=== PATIENT | male | born 1985 | race Caucasian/White ===

== ENCOUNTER 2025-01-01 21:22 | Emergency (ER) | payer OTHER, SELFPAY ==
[2025-01-01 21:23] VITALS: BP 130/93; PULSE 84; RESP 18; TEMP 36.8; O2SAT 98; BMI 27.6
--- NOTE | 2025-01-01 22:16 | EDS_ITS ---
HPI History of Present Illness Chief Complaint: Bite Informant: patient Narrative Narrative: 39-year-old healthy male was sent here from outside hospital to get rabies vaccine. He states he was in the field with his son's light not firecrackers, it was after dusk 2 nights ago and there were bats flying around chasing insects, and he suddenly felt something soft like a furry rodent bounced off of his right wrist. He did not think anything of it, there was no pain, he noticed that there was a small mildly pruritic rash at that area yesterday, today he went to the ER after making several phone calls and being advised to seek evaluation. He states he did not see for sure a bat but he states it felt like one. ROS ROS ED Constitutional Constitutional ED: Denies chills or fever(s) Eyes Eyes: Denies change in vision or diplopia ENT ENT ED: Denies rhinorrhea or sore throat Cardiovascular Cardiovascular: Denies chest pain or palpitations Respiratory/Chest Respiratory/Chest: Denies cough or dyspnea Gastrointestinal Gastrointestinal: Denies abdominal pain, diarrhea, nausea or vomiting Genitourinary Genitourinary ED: Denies dysuria or hematuria Musculoskeletal Musculoskeletal: Denies back pain, extremity pain or neck pain Integumentary Reports pruritus and rash; Denies abscess Neurologic Neurologic: Denies headache(s), paresthesias or weakness Psychiatric Psychiatric: Denies anxiety or suicidal thoughts PFSH PFSH Allergy/AdvReac Type Severity Reaction Status Date / Time amoxicillin AdvReac Rash Verified 01/01/25 21:23 EXAM Physical Exam Const Vital Signs: 01/01/25 21:23 Temperature 98.2 F Temperature Source Oral Pulse Rate 84 Respiratory Rate 18 Blood Pressure 130/93 H Blood Pressure Mean 105 Pulse Ox 98 Oxygen Delivery Method Room Air Positive well nourished and well developed General Appearance ED: well developed and NAD Eyes PERRL and EOMs intact bilaterally Neck full ROM and supple Resp normal respiratory effort Extremity normal to inspection General Extremety ED: Negative for edema, pulses abnormal or tenderness General Extremity: Negative for edema or pulses abnormal Neuro oriented x3, CN's II-XII intact bilaterally and no sensory deficits noted Sensorium / Orientation: awake and alert Motor Exam: strength 5/5 throughout Psych mental status grossly normal and thought process normal Skin Skin Narrative: A very small 1 cm in diameter patch of erythematous skin at the volar aspect of the right wrist near the ulnar aspect of it, most consistent with an abrasion v ersus small area of contact dermatitis, I do not see an area with 2 bite morales that would be suspicious for a bat bite. There is no tenderness. There is no lymphangitis. There is no swelling or bullae or vesicular lesions. No other rashes. Full range of motion of the wrist and all the fingers. MDM MDM MDM Narrative Medical decision making narrative: I am at a very low suspicion that this is a bite from a bat. He states what ever it was that hit his wrist bounced off of. He is interested in rabies vaccine anyway, I have given him the initial dose here and he is advised to come back for the next 3 and written a prescription. This is so low risk in my opinion I do not think he needs rabies immunoglobulin injection right now. He is in agreement with that. Discharge Plan Triage Chief Complaint: Bite ED Provider: Boston Cantor Dx/Rx/DC Orders Clinical Impression: Exposure to bat without known bite Instructions: Rabies Vaccine, Understanding Rabies Primary Care Provider: Moses Rai Referrals: Moses Rai MD [Primary Care Provider] - Activity Restrictions/Additional Instructions: Return to the ER at the specified days for the rest of the 4 injection series. Print Language: [place] Disposition Disposition: Home, Self Care
[2025-01-01 22:51] VITALS: BP 129/97; PULSE 84; RESP 18; TEMP 36.8; O2SAT 98
== END 2025-01-01 23:08 | disposition home or self-care (01) ==
PROVIDERS: Emergency Provider Emergency Medicine; PCP Family Medicine; Visit Provider Emergency Medicine
DX: S69.92XA Unspecified injury of left wrist, hand and finger(s), initial encounter (principal); W55.89XA Other contact with other mammals, initial encounter; Z23 Encounter for immunization
CPT/HCPCS: 90675; 99282

== ENCOUNTER 2025-01-04 18:28 | Outpatient (CLI) | payer OTHER, SELFPAY ==
[2025-01-04 18:29] VITALS: BP 127/87; PULSE 83; RESP 15; TEMP 36.6; O2SAT 99; BMI 27.2
[2025-01-04 18:33] VITALS: BMI 27.2
[2025-01-04 18:56] VITALS: BP 127/87; PULSE 83; RESP 15; TEMP 36.6; O2SAT 99
--- OUTSIDE RECORDS SUMMARY | 2025-01-04 20:25 | XMS RPT_ITS | CCD ---
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 report to the closest Emergency Room. Call 911 if necessary. 01/01/252225 Cosigner Signature (if applicable): CC: Dr. Moses Duran MD Signed Normal [facility] CMP with eGFRon 11-06-2024 AGE 39 years Normal [facility] Comment on above: Performed By: #### 2 [id number] #### [facility],[address] [place] [address]644 Albumin [Mass/Vol] 4.4 g/dL Normal 3.4 - 5.0 [facility], [facility].; [facility], [facility]. Work Phone: Comment on above: Performed By: #### 2 [id number] #### [facility],[address] [place] [address] Albumin/Globulin [Mass ratio] 1.5 {ratio} Normal 0.9 - 1.6 [facility] Comment on above: Performed By: #### 2 [id number] #### [address] [address] ALK PHOS 74 U/L Normal 46 - 116 [facility].; [facility] Work Phone: Comment on above: Performed By: #### 2 40526 #### [address] [address] ALT [Catalytic activity/Vol] 73 U/L High 16 - 63 [facility], [facility].; [facility] Work Phone: Comment on above: Performed By: #### 2 60279 #### [address] [address] Anion gap [Moles/Vol] 11 mmol/L Normal 10 - 20 [facility], [facility].; [facility] Work Phone: Comment on above: Performed By: #### 2 87026 #### [address] [address] AST [Catalytic activity/Vol] 26 U/L Normal 15 - 37 [facility], [facility].; [facility] Work Phone: Comment on above: Performed By: #### 2 26977 #### [facility],[address] [place] [address] B/C RATIO 12 ratio Normal 0 - 30 [facility] Comment on above: Performed By: #### 2 57104 #### [facility],[address] [place] [address]181 Bilirubin [Mass/Vol] 0.8 mg/dL Normal 0.2 - 1.0 [facility]; [facility], [facility] Work Phone: Comment on above: Performed By: #### 2 52936 #### [facility],[address] [place] [address]329 Calcium [Mass/Vol] 8.9 mg/dL Normal 8.5 - 10.1 [facility].; [facility], [facility] Work Phone: Comment on above: Performed By: #### 2 74647 #### [facility],[address] [place] [address] Chloride [Moles/Vol] 101 mmol/L Normal 98 - 107 [facility]; [facility], [facility]. Work Phone: Comment on above: Performed By: #### 2 65658 #### [facility],[address] [place] [address]753 CMP with eGFR Normal [facility] Comment on above: Result Comment: COMP REHENSIVE METABOLIC PANEL Performed By: #### 2 74829 #### [facility],[address] [place] [address] CO2 [Moles/Vol] 29.9 mmol/L Normal 21.0 - 32.0 [facility], [facility].; [facility], [facility]. Work Phone: Comment on above: Performed By: #### 2 61991 #### [facility],[address] [place] [address] Creatinine [Mass/Vol] 1.07 mg/dL Normal 0.70 - 1.30 [facility] Work Phone: Comment on above: Performed By: #### 2 40510 #### [facility],[address] [place] [address] GFR/1.73 sq M.predicted among non-blacks MDRD (S/P/Bld) [Vol rate/Area] mL/min/{1.73_m2} Normal 60 - 999 [facility] Comment on above: Performed By: #### 2 98364 #### [address] [address] Result Comment: ACCO RDING TO THE NATIONAL KIDNEY DISEASE EDUCATION PROGRAM(NKDE), A NORMAL eGFR IS A VALUE GREATER THAN OR EQUAL TO 60 ML/MIN/1.73 SQ METERS. CHRONIC KIDNEY DISEASE: <60mL/MIN/1.73 SQ METERS KIDNEY FAILURE: <15mL/MIN/1.73 SQ METERS THIS TEST SHOULD ONLY BE USED FOR PATIENTS 18 YEARS OF AGE AND OLDER. Globulin (S) [Mass/Vol] 3.0 g/dL Normal 1.5 - 3.8 [facility] Work Phone: Comment on above: Performed By: #### 2 94866 #### [facility],[address] [place] [address] Glucose [Mass/Vol] 86 mg/dL Normal 74 - 106 [facility] [employer] [facility] [place], [employer]. Work Phone: Comment on above: Performed By: #### 2 17410 #### [facility],[address] [place] [address] Potassium [Moles/Vol] 3.9 mmol/L Normal 3.5 - 5.1 [facility].; [facility]. Work Phone: Comment on above: Performed By: #### 2 04064 #### [facility],[address] [place] [address] Protein [Mass/Vol] 7.4 g/dL Normal 6.4 - 8.2 [facility] Work Phone: Comment on above: Performed By: #### 2 64311 #### [facility],[address] [place] [address]65 Sodium [Moles/Vol] 138 mmol/L Normal 136 - 145 [facility] Work Phone: Comment on above: Performed By: #### 2 60862 #### [address] [address] Urea nitrogen [Mass/Vol] 13 mg/dL Normal 7 - 18 [facility] [place] [facility] [place] [employer] [facility], [place], [employer] Work Phone: Comment on above: Performed By: #### 2 62611 #### [facility],[address] [place] [address] LIPID PROFILEon 11-06-2024 Cholesterol [Mass/Vol] 247 mg/dL High 0 - 240 [facility] [place] [facility] Work Phone: Comment on above: Performed By: #### 2 78745 #### [facility],[address] [place] [address]861 Cholesterol in HDL [Mass/Vol] 46 mg/dL Normal 40 - 60 [facility] Comment on above: Performed By: #### 2 39775 #### [facility],[address] [place] [address] Cholesterol in LDL [Mass/Vol] 172 mg/dL High 0 - 129 [facility] Work Phone: Comment on above: Performed By: #### 2 48218 #### [facility],[address] [place] [address] Cholesterol.total/Ch olesterol in HDL [Mass ratio] 5.4 {ratio} High 0.0 - 5.0 [facility], [facility].; [facility], [employer]. Work Phone: Comment on above: Performed By: #### 2 08881 #### [facility],[address] [place] [address] 17404 Lipid 1996 panel Normal [facility] Comment on above: Result Comment: LIPI D PROFILE Performed By: #### 2 88283 #### [facility],[address] [place] [address] Triglyceride [Mass/Vol] 147 mg/dL Normal 0 - 150 [facility].; [facility] Work Phone: Comment on above: Performed By: #### 2 45858 #### [facility],[address] [place], [place] [address] Laboratory - Chemistry and C hemistry - challengeon 11-06-2024 Albumin [Mass/Vol] 1.5 g/dL Normal 0.9 - 1.6 [facility].; [facility], [facility]. Work Phone: Cholesterol in HDL [Mass or moles/Vol] 46 mg/dL Normal 40 - 60 mg/dL [facility].; [facility] Work Phone: GFR/1.73 sq M.predicted among blacks MDRD (S/P/Bld) [Vol rate/Area] mL/min/{1.73_m2} Normal 60 - 999 {ML/MINUTE} [facility], [facility].; [facility] Work Phone: GFR/1.73 sq M.predicted MDRD (S/P/Bld) [Vol rate/Area] mL/min/{1.73_m2} Normal 60 - 999 {ML/MINUTE} [facility] [employer] [facility], [place] [employer] [facility] [place] [employer] [facility], [place]. Work Phone: Lipid 1996 panel Normal [facility] [employer] [facility] [place] [employer] [facility], [place]. Work Phone: Urea nitrogen/Creatinine [Mass ratio] 12 {ratio} Normal 0 - 30 {ratio} [facility] [employer] [facility], [place].; [employer] [facility] [place] [employer] [facility], [place]. Work Phone: No Panel Informationon 11-06 AGE 39 {years} Normal [facility] [employer] [facility], [place].; [employer] [facility] [place] [employer] [facility], [place]. Work Phone: CMP with eGFR Normal [facility] [employer] [facility], [place]; [employer] [facility] [place] [employer] [facility], [place]. Work Phone: .GFRon 11-24-2022 GFR >60 Normal [facility] ([place]) Comment on above: Result Comment: GFR Population mean for , Non- Americans Ages 20-29 = 116 mL/min/1.73 sq.m. Ages 30-39 = 107 mL/min/1.73 sq.m. Ages 40-49 = 99 mL/min/1.73 sq.m. Ages 50-59 = 93 mL/min/1.73 sq.m. Ages 60-69 = 85 mL/min/1.73 sq.m. Ages 70+ = 75 mL/min/1.73 sq.m. Chronic Kidney Disease: Less than 60 mL/min/1.73 square meters End Stage Renal Disease: Less than 15 mL/min/1.73 square meters Performed By: #### G FR, LIPID, CMP #### [place] [address] GFR Non- >60 Normal [facility] ([place]) Comment on above: Result Comment: GFR Population mean for , Non- Americans Ages 20-29 = 116 mL/min/1.73 sq.m. Ages 30-39 = 107 mL/min/1.73 sq.m. Ages 40-49 = 99 mL/min/1.73 sq.m. Ages 50-59 = 93 mL/min/1.73 sq.m. Ages 60-69 = 85 mL/min/1.73 sq.m. Ages 70+ = 75 mL/min/1.73 sq.m. Chronic Kidney Disease: Less than 60 mL/min/1.73 square meters End Stage Renal Disease: Less than 15 mL/min/1.73 square meters Performed By: #### G FR, LIPID, CMP #### [address] [address] CMPon 11-24-2022 Albumin Level 4.4 G/dL Normal 3.2-4.8 [facility] ([place]) Comment on above: Performed By: #### G FR, LIPID, CMP #### [address] [address] Albumin/Globulin [Mass ratio] 1.8 {ratio} High 0.9-1.6 [facility] ([place]) Comment on above: Performed By: #### G FR, LIPID, CMP #### [address] [address] ALP [Catalytic activity/Vol] 79 U/L Normal 38-126 [facility] ([place]) Comment on above: Performed By: #### G FR, LIPID, CMP #### [address] [address] ALT [Catalytic activity/Vol] 22 U/L Normal 12-55 [facility] ([place]) Comment on above: Performed By: #### G FR, LIPID, CMP #### [address] [address] AST [Catalytic activity/Vol] 19 U/L Normal 8-34 [facility] ([place]) Comment on above: Performed By: #### G FR, LIPID, CMP #### [address] [address] Bili Total 0.40 mg/dL Normal 0.20-1.20 [facility] ([place]) Comment on above: Result Comment: Use of this assay is not recommended for patients undergoing treatment with eltrombopag due to the potential for falsely elevated results. Performed By: #### G FR, LIPID, CMP #### [address] [address] BUN/Creatinine Ratio 13.9 ratio Normal 10.0-22.0 [facility] ([place]) Comment on above: Performed By: #### G FR, LIPID, CMP #### [address] [address] Calcium [Mass/Vol] 9.1 mg/dL Normal 8.7-10.4 Pending sale to [facility] ([place]) Comment on above: Performed By: #### G FR, LIPID, CMP #### [address] [address] Chloride [Moles/Vol] 104 mmol/L Normal 98-110 [facility] ([place] Comment on above: Performed By: #### G FR, LIPID, CMP #### [address] [address] CO2 [Moles/Vol] 28 mmol/L Normal 22-32 [facility] ([place]) Comment on above: Performed By: #### G FR, LIPID, CMP #### [address] [address] Creatinine [Mass/Vol] 1.01 mg/dL Normal 0.60-1.40 [facility] ([place] Comment on above: Performed By: #### G FR, LIPID, CMP #### [address] [address] Electrolyte Balance 7.0 mEq/L Normal 4.0-15.0 [facility] ([place]) Comment on above: Performed By: #### G FR, LIPID, CMP #### [address] [address] Globulin 2.4 G/dL Normal 1.5-3.8 [facility] ([place] Comment on above: Performed By: #### G FR, LIPID, CMP #### [address] [address] Glucose [Mass/Vol] 85 mg/dL Normal 70-110 [facility] ([place]) Comment on above: Performed By: #### G FR, LIPID, CMP #### [address] [address] Potassium [Moles/Vol] 3.9 mmol/L Normal 3.5-5.0 [facility] ([place]) Comment on above: Performed By: #### G FR, LIPID, CMP #### [address] [address] Sodium [Moles/Vol] 139 mmol/L Normal 136-145 [facility] ([place]) Comment on above: Performed By: #### G FR, LIPID, CMP #### [address] [address] Total Protein 6.8 G/dL Normal 5.7-8.2 [facility] ([place]) Comment on above: Result Comment: No te - New Reference Range in effect 19 Performed By: #### G FR, LIPID, CMP #### [address] [address] Urea nitrogen [Mass/Vol] 14.0 mg/dL Normal 8.0-22.0 [facility] ([place]) Comment on above: Performed By: #### G FR, LIPID, CMP #### [address] [address] LIPIDon 11-24-2022 Cholesterol [Mass/Vol] 216 mg/dL High 50-199 [facility] ([place] Comment on above: Result Comment: Chol esterol Reference Interval: Less than 200 Desirable 200-239 Borderline high risk 240 and above High risk Performed By: #### G FR, LIPID, CMP #### [address] [address] Cholesterol in HDL [Mass/Vol] 43 mg/dL Normal 40-59 [facility] ([place] Comment on above: Performed By: #### G FR, LIPID, CMP #### [address] [address] Cholesterol in LDL [Mass/Vol] 118 mg/dL Normal 0-129 [facility] ([place] Comment on above: Performed By: #### G FR, LIPID, CMP #### [place] [id number] [place] [address] Triglyceride [Mass/Vol] 276 mg/dL High 3-149 [facility] ([place] Comment on above: Performed By: #### G FR, LIPID, CMP #### [place] [id number] [place] [address] Laboratory - Chemistry and C hemistry - challengeon 11-24-2022 GFR/1.73 sq M.predicted among blacks MDRD (S/P/Bld) [Vol rate/Area] mL/min/{1.73_m2} Normal [facility] Work Phone: GFR/1.73 sq M.predicted among non-blacks MDRD (S/P/Bld) [Vol rate/Area] mL/min/{1.73_m2} Normal [facility] Work Phone: Laboratory - Chemistry and C hemistry - challengeon 11-23-2022 Albumin BCP dye [Mass/Vol] 4.4 g/dL Normal 3.2 - 4.8 g/dL [facility], [facility].; [facility] Albumin/Globulin [Mass ratio] 1.8 {ratio} Abnormal 0.9 - 1.6 {ratio} [facility], [facility].; [facility] ALP [Catalytic activity/Vol] 79 U/L Normal 38 - 126 U/L [facility], [facility].; [facility] ALT With P-5'-P [Catalytic activity/Vol] 22 U/L Normal 12 - 55 U/L [facility], [facility].; [facility] AST With P-5'-P [Catalytic activity/Vol] 19 U/L Normal 8 - 34 U/L [facility], [facility].; [facility] Bilirubin [Mass/Vol] 0.40 mg/dL Normal 0.20 - 1.20 mg/dL [facility], [facility]; [facility] Calcium [Mass/Vol] 9.1 mg/dL Normal 8.7 - 10. 4 mg/dL [facility]; [facility] Chloride [Moles/Vol] 104 mmol/L Normal 98 - 110 meq/L [facility]; [facility] Cholesterol [Mass/Vol] 216 mg/dL Abnormal 50 - 199 mg/dL [facility].; [facility] Cholesterol in HDL [Mass/Vol] 43 mg/dL Normal 40 - 59 mg/dL [facility]; [facility] Cholesterol in LDL [Mass/Vol] 118 mg/dL Normal 0 - 129 mg/dL [facility]; [facility], [facility] CO2 [Moles/Vol] 28 mmol/L Normal 22 - 32 meq/L [facility]; [facility], [facility] Creatinine [Mass/Vol] 1.01 mg/dL Normal 0.60 - 1.40 mg/dL [facility]; [facility], [facility] Globulin (S) [Mass/Vol] 2.4 g/dL Normal 1.5 - 3.8 g/dL [facility]; [facility], [facility] Glucose [Mass/Vol] 85 mg/dL Normal 70 - 110 mg/dL [facility]; [facility] Potassium [Moles/Vol] 3.9 mmol/L Normal 3.5 - 5.0 meq/L [facility]; [facility], [facility] Protein [Mass/Vol] 6.8 g/dL Normal 5.7 - 8.2 g/dL [facility]; [facility], [facility] Sodium [Moles/Vol] 139 mmol/L Normal 136 - 145 meq/L [facility].; [facility], [facility] Triglyceride [Mass/Vol] 276 mg/dL Abnormal 3 - 149 mg/dL [facility]; [facility] Urea nitrogen [Mass/Vol] 14.0 mg/dL Normal 8.0 - 22.0 mg/dL [facility]; [facility], [facility] Urea nitrogen/Creatinine [Mass ratio] 13.9 {ratio} Normal 10.0 - 22.0 {ratio} [facility].; [facility], [facility] No Panel Informationon 11-23 Electrolyte Balance 7.0 meq/L Normal 4.0 - 15 .0 meq/L [facility]; [facility], [facility] Laboratory - Chemistry and C hemistry - challengeon 10-16-2021 Albumin BCP dye [Mass/Vol] 4.2 g/dL Normal 3.2 - 4.8 g/dL [facility]; [facility], [facility] Albumin/Globulin [Mass ratio] 1.6 {ratio} Normal 0.9 - 1.6 {ratio} [facility]; [facility], [facility]. ALP [Catalytic activity/Vol] 88 U/L Normal 38 - 126 U/L [facility]; [facility], [facility]. ALT With P-5'-P [Catalytic activity/Vol] 39 U/L Normal 12 - 55 U/L [facility]; [facility], [facility]. AST With P-5'-P [Catalytic activity/Vol] 24 U/L Normal 8 - 34 U/L [facility].; [facility], [facility]. Bilirubin [Mass/Vol] 0.40 mg/dL Normal 0.20 - 1.20 mg/dL [facility]; [facility], [facility] Calcium [Mass/Vol] 9.1 mg/dL Normal 8.7 - 10. 4 mg/dL [facility]; [facility], [facility] Chloride [Moles/Vol] 107 mmol/L Normal 98 - 110 meq/L [facility]; [facility] Cholesterol [Mass/Vol] 216 mg/dL Abnormal 50 - 199 mg/dL [facility].; [facility] Cholesterol in HDL [Mass/Vol] 31 mg/dL Abnormal 40 - 59 mg/dL [facility].; [facility], [facility] CO2 [Moles/Vol] 27 mmol/L Normal 22 - 32 meq/L [facility].; [facility], [facility] Creatinine [Mass/Vol] 1.15 mg/dL Normal 0.60 - 1.40 mg/dL [facility].; [facility], [facility]. GFR/1.73 sq M.predicted among blacks MDRD (S/P/Bld) [Vol rate/Area] mL/min/{1.73_m2} Normal [facility].; [facility], [facility] Work Phone: GFR/1.73 sq M.predicted among non-blacks MDRD (S/P/Bld) [Vol rate/Area] mL/min/{1.73_m2} Normal [facility].; [facility], [facility] Work Phone: Globulin (S) [Mass/Vol] 2.6 g/dL Normal 1.5 - 3.8 g/dL [facility].; [facility], [facility] Glucose [Mass/Vol] 91 mg/dL Normal 70 - 110 mg/dL [facility]; [facility], [facility] Potassium [Moles/Vol] 4.2 mmol/L Normal 3.5 - 5.0 meq/L [facility]; [facility], [facility] Protein [Mass/Vol] 6.8 g/dL Normal 5.7 - 8.2 g/dL [facility]; [facility], [facility] Sodium [Moles/Vol] 140 mmol/L Normal 136 - 145 meq/L [facility]; [facility]. Triglyceride [Mass/Vol] 414 mg/dL Abnormal 3 - 149 mg/dL [facility].; [facility], [facility]. Urea nitrogen [Mass/Vol] 17.0 mg/dL Normal 8.0 - 22.0 mg/dL [facility], [facility].; [facility], [facility] Urea nitrogen/Creatinine [Mass ratio] 14.8 {ratio} Normal 10.0 - 22.0 {ratio} [facility], [facility].; [facility], [facility]. No Panel Informationon 10-16 Electrolyte Balance 6.0 meq/L Normal 4.0 - 15 .0 meq/L [facility].; [facility], [facility] LDL Cholesterol Not Valid Normal 0 - 129 mg/dL [facility], [facility].; [facility], [facility]. Coronavirus 2019on 0 COVID 19 Result [employer]OR Normal Negative for COVID19 (SARS CoV2) by PCR. [facility] Comment on above: Result Comment: Nega tive for This test was developed and its performance characteristics determined by [facility]'s [facility] [place]. This test has been authorized by FDA under an Emergency Use Authorization (EUA). This test has been validated in accordance with the FDA's Guidance Document Policy for Diagnostics Testing in Laboratories Certified to Perform High Complexity Testing under CLIA prior to Emergency use Authorization for Coronavirus Disease 2019 during the Public Health Emergency issued on July 08, 2019. COVID19 (SARS This test was developed and its performance characteristics determined by [facility]'s [facility] [place]. This test has been authorized by FDA under an Emergency Use Authorization (EUA). This test has been validated in accordance with the FDA's Guidance Document Policy for Diagnostics Testing in Laboratories Certified to Perform High Complexity Testing under CLIA prior to Emergency use Authorization for Coronavirus Disease 2019 during the Public Health Emergency issued on July 08, 2019. CoV2) by PCR. This test was developed and its performance characteristics determined by [facility]'s [facility] [place]. This test has been authorized by FDA under an Emergency Use Authorization (EUA). This test has been validated in accordance with the FDA's Guidance Document Policy for Diagnostics Testing in Laboratories Certified to Perform High Complexity Testing under CLIA prior to Emergency use Authorization for Coronavirus Disease 2019 during the Public Health Emergency issued on July 08, 2019. Performed By: #### C OVID #### [facility] Laboratories Reference [address] [place], [place] [address] Coronavirus 2019on 0 COVID 19 Source [employer] Normal [place] [facility] Comment on above: Result Comment: Naso pharyngeal Corrected on 03/31 AT 0831: Previously reported as NASAL SWAB Swab Corrected on 03/31 AT 0831: Previously reported as NASAL SWAB Performed By: #### C OVID #### [facility] Reference [address], [place] [address] Laboratory - Chemistry and C hemistry - challengeon 12-29-2019 Albumin BCP dye [Mass/Vol] 4.5 g/dL Normal 3.2 - 4.8 g/dL [facility].; [facility], [facility]. Albumin/Globulin [Mass ratio] 2.0 {ratio} Abnormal 0.9 - 1.6 {ratio} [facility].; [facility], [facility]. ALP [Catalytic activity/Vol] 84 U/L Normal 38 - 126 U/L [facility].; [facility], [facility]. ALT With P-5'-P [Catalytic activity/Vol] 46 U/L Normal 12 - 55 U/L [facility].; [facility], [facility]. AST With P-5'-P [Catalytic activity/Vol] 25 U/L Normal 8 - 34 U/L [facility].; [facility], [facility]. Bilirubin [Mass/Vol] 0.50 mg/dL Normal 0.20 - 1.20 mg/dL [facility], [facility].; [facility], [facility]. Calcium [Mass/Vol] 9.6 mg/dL Normal 8.7 - 10. 4 mg/dL [facility], [facility].; [facility]. Chloride [Moles/Vol] 103 mmol/L Normal 98 - 110 meq/L [facility].; [facility] Cholesterol [Mass/Vol] 231 mg/dL Abnormal 50 - 199 mg/dL [facility].; [facility], [facility] Cholesterol in HDL [Mass/Vol] 41 mg/dL Normal 40 - 59 mg/dL [facility].; [facility], [facility] Cholesterol in LDL [Mass/Vol] 115 mg/dL Normal 0 - 129 mg/dL [facility].; [facility], [facility] CO2 [Moles/Vol] 29 mmol/L Normal 22 - 32 meq/L [facility].; [facility], [facility] Creatinine [Mass/Vol] 0.82 mg/dL Normal 0.60 - 1.40 mg/dL [facility].; [facility], [facility] GFR/1.73 sq M.predicted among blacks MDRD (S/P/Bld) [Vol rate/Area] mL/min/{1.73_m2} [facility].; [facility], [facility] Work Phone: GFR/1.73 sq M.predicted among non-blacks MDRD (S/P/Bld) [Vol rate/Area] mL/min/{1.73_m2} Normal [facility].; [facility], [facility] Work Phone: Globulin (S) [Mass/Vol] 2.2 g/dL Normal 1.5 - 3.8 g/dL [facility].; [facility], [facility] Glucose [Mass/Vol] 98 mg/dL Normal 70 - 110 mg/dL [facility].; [facility], [facility] Potassium [Moles/Vol] 3.9 mmol/L Normal 3.5 - 5.0 meq/L [facility].; [facility], [facility] Protein [Mass/Vol] 6.7 g/dL Normal 5.7 - 8.2 g/dL [facility]; [facility] Sodium [Moles/Vol] 138 mmol/L Normal 136 - 145 meq/L [facility]; [facility] Triglyceride [Mass/Vol] 374 mg/dL Abnormal 3 - 149 mg/dL [facility]; [facility] Urea nitrogen [Mass/Vol] 15.0 mg/dL Normal 8.0 - 22.0 mg/dL [facility]; [facility] Urea nitrogen/Creatinine [Mass ratio] 18.3 {ratio} Normal 10.0 - 22.0 {ratio} [facility]; [facility] No Panel Informationon 12-28 Electrolyte Balance 6.0 meq/L Normal 4.0 - 15 .0 meq/L [facility]; [facility] Vital Signs Date Time Vital Sign Value Performing Clinician Facility 01-04-2025 18:56-0400 Body temperature 98 [degF] Dr. Moses Duran MD Work Phone: [facility] 01-04-2025 18:56-0400 Diastolic blood pressure 87 mm[Hg] Dr. Moses Duran MD Work Phone: [facility] 01-04-2025 18:56-0400 Heart rate 83 /min Dr. Moses Duran MD Work Phone: [facility] 01-04-2025 18:56-0400 Respiratory rate 15 /min Dr. Moses Duran MD Work Phone: [facility] 01-04-2025 18:56-0400 SaO2% (BldA) [Mass fraction] 99 % Dr. Moses Duran MD Work Phone: [facility] 01-04-2025 18:56-0400 Systolic blood pressure 127 mm[Hg] Dr. Moses Duran MD Work Phone: [facility] 01-04-2025 18:33-0400 Body height 187.[address] Moses Duran MD Work Phone: [facility] 01-04-2025 18:33-0400 Body mass index (BMI) [Ratio] 27.2 kg/m2 Dr. Moses Duran MD Work Phone: [facility] 01-04-2025 18:33-0400 Body weight 96.[address] Moses Duran MD Work Phone: 2(879)913-709599 [place] [address] 01-01-2025 22:51-0400 Body temperature 98.2 [degF] Dr. Moses Duran MD Work Phone: 1(909)011-426599 [place] [address] 01-01-2025 22:51-0400 Diastolic blood pressure 97 mm[Hg] Dr. Moses Duran MD Work Phone: 9(836)[phone] [place] [address] 01-01-2025 22:51-0400 Heart rate 84 /min Dr. Moses Duran MD Work Phone: 8(912)208-981099 [place] [address] 01-01-2025 22:51-0400 Respiratory rate 18 /min Dr. Moses Duran MD Work Phone: 0(859)[phone] [place] [address] 01-01-2025 22:51-0400 SaO2% (BldA) [Mass fraction] 98 % Dr. Moses Duran MD Work Phone: 8(702)[phone] [place] [address] 01-01-2025 22:51-0400 Systolic blood pressure 129 mm[Hg] Dr. Moses Duran MD Work Phone: 6(302)[phone] [place] [address] 01-01-2025 21:23-0400 Body height 187.[address] Moses Duran MD Work Phone: [facility] 01-01-2025 21:23-0400 Body mass index (BMI) [Ratio] 27.6 kg/m2 Dr. Moses Duran MD Work Phone: 1(100)060-081699 [place] [address] 01-01-2025 21:23-0400 Body weight 97.[address] Moses Duran MD Work Phone: [facility] 11-06-2024 14:33-0400 Body height 187.96 cm JANEL STRICKLANDSparkcentralTETTER EPIC INTERFACE ANALYST-C [facility], [facility] 11-06-2024 14:33-0400 Body mass index (BMI) [Ratio] 27.48 kg/m2 JANEL SparkcentralTETTER EPIC INTERFACE ANALYST-C [facility], [facility] 11-06-2024 14:33-0400 Body surface area Derived from formula 2.24 m2 [facility]ITALSparkcentralTETTER EPIC INTERFACE ANALYST-C [facility], [facility] 11-06-2024 14:33-0400 Body weight 97.07 kg JANEL STRICKLANDSparkcentralTETTER EPIC INTERFACE ANALYST-C [facility], Inc.; [facility], [facility] 11-06-2024 14:33-0400 Diastolic blood pressure 86 mm[Hg] JANEL CurvoTETTER EPIC INTERFACE ANALYST-C [facility], Inc.; [employer] [facility] [place] [employer] [facility], Inc. Comment on above: Patient Position: Sitting; Cuff Location : Left Arm; Cuff Size: Large 11-06-2024 14:33-0400 Heart rate 83 /min JANEL CurvoTETTER EPIC INTERFACE ANALYST-C [facility] [employer] [facility], Inc.; [employer] [facility] [employer] [facility], Inc. Comment on above: Pattern: Regular 11-06-2024 14:33-0400 Systolic blood pressure 125 mm[Hg] JANEL CurvoTETTER EPIC INTERFACE ANALYST-C [facility]urban[facility], Inc.; [employer] [facility] [employer] [facility], Inc. Comment on above: Patient Position: Sitting; Cuff Location : Left Arm; Cuff Size: Large 11-23-2022 15:24-0400 Body height 187.96 cm JANEL STRICKLANDSparkcentralTETTER EPIC INTERFACE ANALYST-C [facility], Inc.; [employer] [facility] [employer] [facility], Inc. 11-23-2022 15:24-0400 Body mass index (BMI) [Ratio] 28.25 kg/m2 JANEL LYONSTTER EPIC INTERFACE ANALYST-C [facility], [facility] 11-23-2022 15:24-0400 Body surface area Derived from formula 2.26 m2 JANEL HUDSONER EPIC INTERFACE ANALYST-C [facility], Inc[facility] 11-23-2022 15:24-0400 Body weight 99.79 kg JANEL HUDSONER EPIC INTERFACE ANALYST-C [facility], Inc[facility] 11-23-2022 15:24-0400 Diastolic blood pressure 88 mm[Hg] JANEL LYONSTTER EPIC INTERFACE ANALYST-C [facility], Inc[facility] Comment on above: Patient Position: Sitting; Cuff Location : Left Arm; Cuff Size: Large 11-23-2022 15:24-0400 Heart rate 77 /min JANEL LYONSTTER EPIC INTERFACE ANALYST-C [facility] [employer] [facility] [employer] [facility], Inc. Comment on above: Pattern: Regular 11-23-2022 15:24-0400 Systolic blood pressure 139 mm[Hg] JANEL LYONSTTER EPIC INTERFACE ANALYST-C [facility], Inc[facility] Comment on above: Patient Position: Sitting; Cuff Location : Left Arm; Cuff Size: Large 10-16-2021 14:55-0400 Body height 187.96 cm JANEL HUDSONER EPIC INTERFACE ANALYST-C [facility], [facility] 10-16-2021 14:55-0400 Body mass index (BMI) [Ratio] 28.76 kg/m2 JANEL HUDSONER EPIC INTERFACE ANALYST-C [facility] [employer] [facility], Inc.; [facility], Inc[facility] 10-16-2021 14:55-0400 Body surface area Derived from formula 2.28 m2 JANEL HUDSONER EPIC INTERFACE ANALYST-C [facility] [employer] [facility], Inc.; [facility], Inc[facility] 10-16-2021 14:55-0400 Body weight 101.61 kg JANEL HUDSONER EPIC INTERFACE ANALYST-C [facility], [facility] 10-16-2021 14:55-0400 Diastolic blood pressure 83 mm[Hg] JANEL HUDSONER EPIC INTERFACE ANALYST-C [facility], [facility] Comment on above: Patient Position: Sitting; Cuff Location : Left Arm; Cuff Size: Large 10-16-2021 14:55-0400 Heart rate 80 /min JANEL HUDSONER EPIC INTERFACE ANALYST-C [facility], [facility] Comment on above: Pattern: Regular 10-16-2021 14:55-0400 Systolic blood pressure 127 mm[Hg] JANEL HUDSONER EPIC INTERFACE ANALYST-C [facility], [facility] Comment on above: Patient Position: Sitting; Cuff Location : Left Arm; Cuff Size: Large 12-28-2019 15:22-0400 Body height 187.96 cm JANEL [facility], Inc[facility] 12-28-2019 15:22-0400 Body mass index (BMI) [Ratio] 28.63 kg/m2 [facility], Inc[facility] 12-28-2019 15:22-0400 Body surface area Derived from formula 2.28 m2 [facility], [facility]. 12-28-2019 15:22-0400 Body weight 101.15 kg JANEL HUDSONER EPIC INTERFACE ANALYST-C [facility], [facility]. 12-28-2019 15:22-0400 Diastolic blood pressure 92 mm[Hg] JANEL HUDSONER EPIC INTERFACE ANALYST-C [facility], Inc[facility] Comment on above: Patient Position: Sitting; Cuff Location : Left Arm; Cuff Size: Large 12-28-2019 15:22-0400 Heart rate 89 /min JANEL HUDSONER EPIC INTERFACE ANALYST-C [facility] [employer] [facility], Inc. Comment on above: Pattern: Regular 12-28-2019 15:22-0400 Systolic blood pressure 134 mm[Hg] JANEL AVILEZP-C [facility] [employer] [facility], Inc. Comment on above: Patient Position: Sitting; Cuff Location : Left Arm; Cuff Size: Large 12-29-2017 16:13-0400 Body height 187.96 cm Carmen Ta [facility] [employer] [facility], Inc.; [employer] [facility] [employer] [facility], Inc. 12-29-2017 16:13-0400 Body mass index (BMI) [Ratio] 28.25 kg/m2 Carmen A [facility] [employer] [facility] [employer] [facility], Inc. 12-29-2017 16:13-0400 Body surface area Derived from formula 2.26 m2 Carmen A [facility] [employer] [facility] [employer] [facility], Inc. 12-29-2017 16:13-0400 Body temperature 98 [degF] Carmen Ta [facility] sofía [facility], Inc.; [employer] [facility] [employer] [facility], Inc. Comment on above: Method: Oral 12-29-2017 16:13-0400 Body weight 99.79 kg Carmen Ta Amezquita Eugene [facility] [employer] [facility], Inc.; [employer] [facility] [employer] [facility], Inc. 12-29-2017 16:13-0400 Diastolic blood pressure 90 mm[Hg] Carmen Ta [facility] [employer] [facility] DelawareAdamas Pharmaceuticals Inc.; [employer] [facility] [employer] [facility], Inc. Comment on above: Patient Position: Sitting; Cuff Location : Left Arm; Cuff Size: Standard 12-29-2017 16:13-0400 Heart rate 85 /min Carmen Ta Amezquita Eugene [employer] [facility], Inc.; [employer] [facility] Roque [employer], Inc. Comment on above: Pattern: Regular 12-29-2017 16:13-0400 Systolic blood pressure 138 mm[Hg] Carmen Ta [facility] [employer] [facility], Inc.; [employer] [email or web address], Inc. Comment on above: Patient Position: Sitting; Cuff Location : Left Arm; Cuff Size: Standard 10-05-2017 15:46-0400 Body height 187.96 cm Carmen Roque [employer] [facility], Inc.; GUNJAN CROW [employer] [facility], Inc. 10-05-2017 15:46-0400 Body mass index (BMI) [Ratio] 28.25 kg/m2 Carmen Roque [employer] [facility], Inc.; Vertical Performance PartnersMICHAEL CROW [facility], Inc. 10-05-2017 15:46-0400 Body surface area Derived from formula 2.26 m2 Carmen Knight Ro[employer] [facility], Inc.; [employer] CROW [facility], Inc. 10-05-2017 15:46-0400 Body weight 99.79 kg Carmen Roque [employer] [facility], Inc.; Vertical Performance PartnersMICHAEL CROW [facility], Inc. 10-05-2017 15:46-0400 Diastolic blood pressure 84 mm[Hg] Carmen Knight [employer] [facility], Inc.; [place] [employer] [facility], Inc. Comment on above: Patient Position: Sitting; Cuff Location : Left Arm; Cuff Size: Standard 10-05-2017 15:46-0400 Heart rate 88 /min Carmen Roque [employer], Inc.; [place] [employer] [facility], Inc. Comment on above: Pattern: Regular 10-05-2017 15:46-0400 Systolic blood pressure 134 mm[Hg] Carmen Knight [employer], Inc.; [place] [employer] [facility], Inc. Comment on above: Patient Position: Sitting; Cuff Location : Left Arm; Cuff Size: Standard Encounters Encounter Date Encounter Type Care Provider Facility Start: 01-04-2025 End: 01-04-2025 Emergency department patient visit Dr. Moses Duran MD Work Phone: -Emergency Department Work Phone: Start: 01-01-2025 End: 01-01-2025 Emergency department patient visit Dr. Moses Duran MD Work Phone: -Emergency Department Work Phone: Start: 01-01-2025 End: 01-01-2025 Emergency department patient visit ALLAN DURAN [facility] Start: 11-07-2024 End: 11-07-2024 Nutrition therapy JANEL ROBERTS EPIC INTERFACE ANALYST-C [facility] Start: 11-06-2024 End: 11-06-2024 ambulatory SONG DURAN [facility] Start: 11-06-2024 End: 11-06-2024 Patient encounter procedure SONG DURAN MD Work Phone: [facility] [employer] [facility], [employer].; [employer] [facility] Roque [employer] [facility], Inc. Start: 11-06-2024 End: 11-06-2024 Periodic preventive med est patient 40-64yrs JANEL ROBERTS EPIC INTERFACE ANALYST-C [facility] [employer] [facility], Inc. Start: 11-26-2022 End: 11-26-2022 Nutrition therapy JANEL ROBERTS EPIC INTERFACE ANALYST-C [facility] [employer] [facility], Inc. Start: 11-24-2022 End: 11-29-[address] SONG DURAN MD Facility:A Start: 11-23-2022 End: 11-23-2022 Patient encounter procedure JANEL ROBERTS EPIC INTERFACE ANALYST-C [employer] [facility].; [employer] [facility] Roque [employer] [facility], Inc. Start: 11-23-2022 End: 11-23-2022 Periodic preventive med est patient 18-39 yrs JANEL ROBERTS EPIC INTERFACE ANALYST-C [facility] [employer] [facility], Inc. Start: 10-17-2021 End: 10-17-2021 Nutrition therapy JANEL ROBERTS EPIC INTERFACE ANALYST-C [facility] [employer] [facility], Inc. Start: 10-16-2021 End: 10-16-2021 Patient encounter procedure JANLE ROBERTS EPIC INTERFACE ANALYST-C [employer].; [employer] [facility] Roque [employer], Inc. Start: 10-16-2021 End: 10-16-2021 Periodic preventive med est patient 18-39 yrs JANEL ROBERTS EPIC INTERFACE ANALYST-C [facility] [employer] [facility], Inc. Start: 01-01-2020 End: 01-01-2020 Nutrition therapy JANEL ROBERTS EPIC INTERFACE ANALYST-C [place] [employer] [facility] [employer] [facility], Inc. Start: 12-28-2019 End: 12-28-2019 Patient encounter procedure JANEL ROBERTS EPIC INTERFACE ANALYST-Von Immunov[facility] [place]; [employer]SL [employer] [facility] Roque [employer] [facility]. Start: 12-28-2019 End: 12-28-2019 Periodic preventive med est patient 18-39 yrs JANEL LYONSMARLI KIMBROUGH-Von [facility] [employer] [facility]. Start: 12-29-2017 End: 12-29-2017 Medication Refill/Order JANEL ROBERTS EPIC INTERFACE ANALYST-Von [facility] [employer] [facility]. Start: 12-29-2017 End: 12-29-2017 Office outpatient visit 15 minutes JANEL HUDSONKAYLA KIMBROUGH-Von [employer] [facility] Roque [employer] [facility]. Start: 10-05-2017 End: 10-05-2017 Office outpatient visit 10 minutes JANEL CORWINDMITRIYMARLI KIMBROUGH-Von [place] CROWChristus Bossier Emergency HospitalHandle [facility] Procedures Date Procedure Procedure Detail Performing Clinician Start: 10-16-2021 End: 10-16-2021 Adacel SONG DURAN MD Work Phone: Comment on above: Refused. Start: 12-28-2019 End: 12-28-2019 Dischrg meds reconciled w/current med list SONG DURAN MD Work Phone: Start: 12-28-2019 End: 12-28-2019 Urinary Incontinence SONG DURAN MD Work Phone: Comment on above: Negative. Plan of Treatment Date Care Activity Detail Author Start: 01-01-2025 [facility] Start: 11-06-2024 Comprehensive metabolic panel CMP - COMPREHENSIVE METABOLIC PANEL (05817) Start: 06-Nov-2024 14:44-04:00 Request [employer]; [employer] [facility] [employer]. Start: 11-06-2024 Lipid panel LIPID PANEL ([id number]) ([facility] #[id number]) Start: 06-Nov-2024 14:44-04:00 Request [email or web address].; [employer] [facility] [employer]. Start: 12-29-2017 Patient Education BRONCHITIS, ACUTE Indication: Bronchitis, Acute, Unspecified Organism (Renamed from Acute bronchitis, unspecified organism) Start: 29-Dec-2017 Instruction Type: Patient Education Immunovaccine [facility] [place]; [facility] [employer] [facility] [place] Patient Education Rabies Vaccine Understanding Rabies [facility] Work Phone: Immunizations Immunization Date Immunization Notes Care Provider Rosaura aldridge 01-04-2025 rabies vaccine, for intramuscular injection Dr. Moses Duran MD Work Phone: [facility] 01-01-2025 rabies vaccine, for intramuscular injection Dr. Moses Duran MD Work Phone: [facility] Payers Date Payer Category Payer Self-pay 2022 Unknown [id number] 1985 Unknown [id number] 1985 Unknown [id number] 1985 Unknown [id number] Unknown [employer] Unknown [id number] Social History Date Type Detail Facility Alcohol Use: Alcohol Use: ; Y es for Alcohol Use. [email or web address].; [facility] Current Work/Study Status Current Work/Study Status [facility] Tobacco use: Tobacco use: ; N ever smoker. Immunovaccine [facility] [place].; [facility] [employer] [facility] [place]. Start: 1985 Male [facility] Start: 01-01-2025 Never smoked tobacco [facility] Discharge summary 01-01-2025 Note Date & Type Note Facility 01-01-2025 Discharge summary [facility] Discharge summary 01-01-2025 Note Date & Type Note Facility 01-01-2025 Discharge summary Note Date/Time January 01, 2025 10:26pm [facility] Medical Records Department [address] [place] [address] Emergency Department Summary 01/01/25 MR#: [id number] Acct: [id number] Name: VON DELUNA Rep #:[id number] : 1985 39 From: [place] Cantor MD PCP: Dr. Moses Duran MD Status:RE G ER Location: ED HPI History of Present Illness Chief Complaint: Bite Informant: patient Narrative Narrative: 39-year-old healthy male was sent here from outside hospital to get rabies vaccine. He states he was in the field with his son's light not firecrackers, it was after dusk 2 nights ago and there were bats flying around chasing insects, and he suddenly felt something soft like a furry rodent bounced off of his right wrist. He did not think anything of it, there was no pain, he noticed that there was a small mildly pruritic rash at that area yesterday, today he went to the ER after making several phone calls and being advised to seek evaluation. He states he did not see for sure a bat but he states it feltlike one. ROS ROS ED Constitutional Constitutional ED: Denies chills or fever(s) Eyes Eyes: Denies change in vision or diplopia ENT ENT ED: Denies rhinorrhea or sore throat Cardiovascular Cardiovascular: Denies chest pain or palpitations Respiratory/Chest Respiratory/Chest: Denies cough or dyspnea Gastrointestinal Gastrointestinal: Denies abdominal pain, diarrhea, nausea or vomiting Genitourinary Genitourinary ED: Denies dysuria or hematuria Musculoskeletal Musculoskeletal: Denies back pain, extremity pain or neck pain Integumentary Reports pruritus and rash; Denies abscess Neurologic Neurologic: Denies headache(s), paresthesias or weakness Psychiatric Psychiatric: Denies anxiety or suicidal thoughts PFSH PFSH Allergy/AdvReac Type Severity Reaction Status Date / Time amoxicillin AdvReac Rash Verified 01/01/25 21:23 EXAM Physical Exam Const Vital Signs: 01/01/25 21:23 Temperature 98.2 F Temperature Source Oral Pulse Rate 84 Respiratory Rate 18 Blood Pressure 130/93 H Blood Pressure Mean 105 Pulse Ox 98 Oxygen Delivery Method Room Air Positive well nourished and well developed General Appearance ED: well developed and NAD Eyes PERRL and EOMs intact bilaterally Neck full ROM and supple Resp normal respiratory effort Extremity normal to inspection General Extremety ED: Negative for edema, pulses abnormal or tenderness General Extremity: Negative for edema or pulses abnormal Neuro oriented x3, CN's II-XII intact bilaterally and no sensory deficits noted Sensorium / Orientation: awake and alert Motor Exam: strength 5/5 throughout Psych mental status grossly normal and thought process normal Skin Skin Narrative: A very small 1 cm in diameter patch of erythematous skin at the volar aspect of the right wrist near the ulnar aspect of it, most consistent with an abrasion versus small area of contact dermatitis, I do not see an area with 2 bite morales that would be suspicious for a bat bite. There is no tenderness. There is no lymphangitis. There is no swelling or bullae or vesicular lesions. No other rashes. Full range of motion of the wrist and all the fingers. MDM MDM MDM Narrative Medical decision making narrative: I am at a very low suspicion that this is a bite from a bat. He states what ever it was that hit his wrist bounced off of. He is interested in rabies vaccine anyway, I have given him the initial dose here and he is advised to comeback for the next 3 and written a prescription. This is so low risk in my opinion I do not think he needs rabies immunoglobulin injection right now. He is in agreement with that. Discharge Plan Triage Chief Complaint: Bite ED Provider: Boston Cantor Dx/Rx/DC Orders Clinical Impression: Exposure to bat without known bite Instructions: Rabies Vaccine, Understanding Rabies Primary Care Provider: Moses Duran Referrals: Moses Duran MD [Primary Care Provider] - Activity Restrictions/Additional Instructions: Return to the ER at the specified days for the rest of the 4 injection series. Print Language: Cameroonian Disposition Disposition: Home, Self Care What to do if you have Problems For any increased pain, shortness of breath, bleeding, nausea or vomiting, chestpain, or any unexpected problems, contact your Primary Care Provider. Call [facility] ([phone]) or report to the closest Emergency Room. Call 911 if necessary. 01/01/252225 <Electronically signed by Boston Cantor MD> Cosigner Signature (if applicable): CC: Dr. Moses Duran MD ~ Signed [facility] Work Phone: Evaluation note Note Date & Type Note Facility Evaluation note No assessment information availa ble [facility] Work Phone: Hospital Discharge instructions Note Date & Type Note Facility Hospital Discharge instructions Additional Instructions Return to the ER at the specified days for the rest of the 4 injection series. [facility] Work Phone: Reason for referral (narrative) Note Date & Type Note Facility Reason for referral (narrative) No reason for referral information available [facility] Work Phone: Summary Purpose Family History Children Status:Active Comments:x4 Father Status:Active Mother Status:Active Children Status:Active Comments:x4 Father Status:Active Mother Status:Active Children Status:Active Comments:x4 Father Status:Active Mother Status:Active Children Status:Active Comments:x4 Father Status:Active Mother Status:Active Children Status:Active Comments:x4 Father Status:Active Mother Status:Active Advance Directives Advance Directive Response Recorded Date/ Time Do you have a Healthcare Power of Neuroscience Director Na? No January 01, 2025 10:48pm Chief Complaint and Reason for Visit Chief Complaint Admit Date RABIES VACCINE January 01, 2025 9: 22pm Chief Complaint Admit Date RABIES VACCINE January 01, 2025 9: 22pm MEDS ONLY January 04, 2025 6: 28pm Additional Source Comments (unrecognized sect ion and content) No Status Records FoundNo Status Records FoundNo Status Records FoundNo Status Records Found INFORMATION SOURCE (unrecogn ized section and content) DATE CREATED AUTHOR 04/01/2020 [facility] DATE CREATED AUTHOR AUTHOR'S ORGANIZ ATION 12/15/2022 [facility] ([place] DATE CREATED AUTHOR AUTHOR'S ORGANIZ ATION 01/02/2025 [facility] DATE CREATED AUTHOR AUTHOR'S ORGANIZ ATION 01/03/[address] [facility] Care Teams (unrecognized sec tion and content) Team Status: Active Member Role/Relationship Status Dates Dr. Moses Duran MD Primary Care Provider Active Team Status: Inactive Member Role/Relationship Status Dates Dr. Moses Duran MD Primary Care Provider Active Start: January 01, 2025 End: January 01, 2025 Dr. Boston Cantor MD Emergency Provider Active Start: January 01, 2025 End: January 01, 2025 Team Status: Inactive Member Role/Relationship Status Dates Dr. Moses Duran MD Primary Care Provider Active Start: January 04, 2025 End: January 04, 2025 Dr. Caridad Crespo DO Emergency Provider Active Start: January 04, 2025 End: January 04, 2025 Goals (unrecognized section and content) Goals may be documented in a n alternate sectionGoals may be documented in an alternate section FOR RECORDS PERTAINING TO PATIENTS WHO ARE OR HAVE BEEN ENROLLED IN A CHEMICAL DEPENDENCY/SUBSTANCEABUSE PROGRAM, SOME INFORMATION MAY BE OMITTED. This clinical summary was aggregated from multiple sources. Caution should be exercised in using it in the provision of clinical care. This summary normalizes information from multiple sources, and as a consequence, information in this document may materially change the coding, format and clinical context of patient data. In addition, data may be omitted in some cases. CLINICAL DECISIONS SHOULD BE BASED ON THE PRIMARY CLINICAL RECORDS. [facility]. provides no warranty or guarantee of the accuracy or completeness of information in this document.
--- OUTSIDE RECORDS SUMMARY | 2025-01-04 20:25 | XMS RPT_ITS | CCD ---
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 Mclean Emergency Provider [phone] Allergies Allergy Classification Reported Allergen(s) Allergy Type Date of Onset Reaction(s) Facility (7 sources) Amoxicillin Drug Allergy 11-06-2024 [facility], [facility].; [facility], [facility]. (1 source) Amoxicillin Drug Allergy 01-01-2025 [facility] Repository Medications Completed/Discontinued Medications Medication Drug Class(es) [...] here for a other ( wellness for [employer] ) physical. 11-06-2024 Unclassified (5 sources) !Patient [...] here for a other ( wellness for [employer] ) physical. The patinet denies tobacco use. 11-23-2022 Unclassified (5 sources) Physical examination - The patient is here for a other ( wellness for [employer] ) physical. The patinet denies tobacco use. [...] examination: Pt is feeling well. Form from [employer] to fill out. 12-28-2019 Unclassified (5 sources) [...] DETAIL on 01-01-2025 ED MED ADMINISTRATION DETAIL Field Enumerator - VON DELUNA, : 1985, , Medication Administration Record [address] [address] [id number] 01/01/2025 Patient: VON DELUNA Sex: Male : [...] mL given. 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 Given in the right deltoid. Allergies verified and Felisha Amezquita R.N. 0.5 mL (NOW x1) confirmed 5 rights. Information reviewed. Verbalizes understanding. Scanned Vaccine information statement (01/01/2025) provided to the patient. - 20:03 Felisha Amezquita R.N. 1 of 1 Normal [facility] ED NURSES CLINICAL NOTEon ED NURSES CLINICAL NOTE Nurse Narrative - VON DELUNA, : 1985, , Nurse Clinical Narrative [address] [address] [id number] 01/01/2025 16:25:00 Patient: VON DELUNA Sex: Male : 1985 Age: 39y Disposition: Transfer to [facility] Disposition Decision Time: 19:29 01/01/2025 Departure Time: [...] VON, : 1985, , 17:01/01/25. Preferred Pharmacy: ([facility]). -- 17:15 01/01/25 PAYTON Amezquita R.N. Allergies: [...] mL given. 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 Given in the right deltoid. Allergies verified [...] 20:29 01/01/25. Report was given. (ISIDRA Garcia [facility]). -- 20:29 01/01/25 EDT Felisha Amezquita R.N. (Electronically signed by Felisha Amezquita R.N. 01/01/25 20:29:52 EDT) Generated by [facility] 3 of 3 [facility] ED ORDER SHEET (CPOE ONLY)on 01-01-2025 ED ORDER SHEET (CPOE ONLY) Order Sheet - VON DELUNA, : 1985, , [place] [address] [id number] 01/01/2025 Patient: VON DELUNA Sex: Male : [...] (01/01/2025 22:14 EDT)] 2 of 2 Normal [facility] ED PHYSICIAN CLINICAL REPORT on 01-01-2025 ED PHYSICIAN CLINICAL REPORT Narrative - VON DELUNA, : 1985, , Physician Clinical [address] [address] [id number] 01/01/2025 16:25:00 Patient: VON DELUNA Sex: Male : 1985 Age: 39y Disposition: Transfer to [facility] Disposition Decision Time: 19:29 01/01/2025 Departure Time: [...] did discuss this with Dr. Dunham at [facility]. And the patient will be transferred to [facility] by private vehicle. I did update [...] days, dispense 15 tablet. Refills 0. Pharmacy: [facility] - [address] [place] [address]. Follow-up with: [facility], Phone: [phone], [facility], [address] [address]. (see the skin doctor for masses on arm and chest.. May need biopsy.). Song Duran M.D, [facility], Phone: [phone], [address] [place] [address]. Follow up in three days. (Electronically signed by Collins Cooper D.O. 01/01/25 22:14:27 EDT) Generated by [facility] 3 of 3 Normal [facility] ED SUPER BILLon 01-01-2025 ED SUPER BILL VON España, : 1985, , [place] [address] [id number] 01/01/2025 Patient: VON DELUNA Sex: Male : 1985 Age: 39y Item Professional Category Description Facility Code Code Quantity Fee Total Nurse/E/M EMERGENCY 003099 1 $0.00 $0.00 DEPARTMENT VISIT MODERATE SEVERITY (02034-75) Nurse/Procedures One vaccine 312429 1 $0.00 $0.00 (46228) Grand Total $0.00 Providers Collins Cooper D.O. Chief Complaint UPPER EXTREMITY ALTERED SENSATION. Principal Diagnosis 1 of 2 VON España, : 1985, , Single superficial abrasion to the right wrist. lymph nodes on arm and chest bat exposure. ICD-10 Codes S60.811A: Abrasion of right wrist, initial encounter 2 of 2 Normal [facility] ED VISIT SUMMARYon ED VISIT SUMMARY Visit Overview - VON DELUNA : 1985, , Visit [address] [place] [address] [id number] 01/01/2025 Patient: VON DELUNA Sex: Male : [...] THE RIGHT WRIST 3 of 3 Normal [facility] ED VITALS FLOW SHEETon 01-01 ED VITALS FLOW SHEET Vitals - VON DELUNA, : 1985, , Vital Sign Flow Sheet [address] [address] [id number] 01/01/2025 Patient: VON DELUNA Sex: Male : 1985 Age: 39y Measurements Wt: 95.3 kg, Ht/Wilmer: 74.0 in, BMI: 26.96 Measured Time BP MAP HR RR O2Sat ETCO2 Temp Pain GCS RTS 20:14 01/01/2025 132/95 107 78 15 98% 17:12 01/01/2025 126/87 100 76 18 97% 98.1 F 0 1 of 1 Normal [facility] Emergency Department Summary on 01-01-2025 Emergency Department Summary [facility] Medical Records Department [address] [place], [place] [address] [address] Emergency Department Summary 01/01/25 MR#: [id number] Acct: [id number] Name: VON DELUNA LAUREL Rep #: [id number] : 1985 39 From: Boston Cantor MD [...] of the 4 injection series. Print Language: Uzbek Disposition Disposition: Home, Self Care What to do if you have Problems For any increased pain, shortness of breath, bleeding, nausea or vomiting, chest pain, or any unexpected problems, contact your Primary Care Provider. Call [facility] ([phone]) or report to the closest Emergency Room. Call 911 if necessary. 01/01/252225 Cosigner Signature (if applicable): CC: Dr. Moses Duran MD Signed Normal [facility] CMP with eGFRon 11-06-2024 AGE 39 years Normal [facility] Comment on above: Performed By: #### 2 84636 #### [facility],[address] [place] [address] Albumin [Mass/Vol] 4.4 g/dL Normal 3.4 - 5.0 [facility], [facility].; [facility], [facility]. Work Phone: Comment on above: Performed By: #### 2 25834 #### [facility],[address] [place] [address] Albumin/Globulin [Mass ratio] 1.5 {ratio} Normal 0.9 - 1.6 [facility] Comment on above: Performed By: #### 2 33461 #### [address] [address] ALK PHOS 74 U/L Normal 46 - 116 [facility].; [facility], [facility] Work Phone: Comment on above: Performed By: #### 2 08961 #### [address] [address] ALT [Catalytic activity/Vol] 73 U/L High 16 - 63 [facility], [facility].; [facility], [facility] Work Phone: Comment on above: Performed By: #### 2 63316 #### [address] [address] Anion gap [Moles/Vol] 11 mmol/L Normal 10 - 20 [facility], [facility].; [facility], [facility] Work Phone: Comment on above: Performed By: #### 2 13626 #### [address] [address] AST [Catalytic activity/Vol] 26 U/L Normal 15 - 37 [facility], [facility].; [facility], [facility] Work Phone: Comment on above: Performed By: #### 2 69483 #### [facility],[address] [place] [address] B/C RATIO 12 ratio Normal 0 - 30 [facility] Comment on above: Performed By: #### 2 61636 #### [facility],[address] [place] [address] Bilirubin [Mass/Vol] 0.8 mg/dL Normal 0.2 - 1.0 [facility]; [facility], [facility] Work Phone: Comment on above: Performed By: #### 2 11754 #### [facility],[address] [place] [address] Calcium [Mass/Vol] 8.9 mg/dL Normal 8.5 - 10.1 [facility].; [facility], [facility] Work Phone: Comment on above: Performed By: #### 2 13100 #### [facility],[address] [place] [address] Chloride [Moles/Vol] 101 mmol/L Normal 98 - 107 [facility]; [facility], [facility]. Work Phone: Comment on above: Performed By: #### 2 59111 #### [facility],[address] [place] [address] CMP with eGFR Normal [facility] [place] Comment on above: Result Comment: COMP REHENSIVE METABOLIC PANEL Performed By: #### 2 89296 #### [facility],[address] [place] [address] CO2 [Moles/Vol] 29.9 mmol/L Normal 21.0 - 32.0 [facility], [facility].; [facility], [facility]. Work Phone: Comment on above: Performed By: #### 2 76115 #### [facility],[address] [place] [address] Creatinine [Mass/Vol] 1.07 mg/dL Normal 0.70 - 1.30 [facility].; [facility]. Work Phone: Comment on above: Performed By: #### 2 12244 #### [facility],[address] [place] [address] GFR/1.73 sq M.predicted among non-blacks MDRD (S/P/Bld) [Vol rate/Area] mL/min/{1.73_m2} Normal 60 - 999 [facility] Comment on above: Performed By: #### 2 51927 #### [address] [address] Result Comment: ACCO RDING TO THE NATIONAL KIDNEY DISEASE EDUCATION PROGRAM(NKDE), A NORMAL eGFR IS A VALUE GREATER THAN OR EQUAL TO 60 ML/MIN/1.73 SQ METERS. CHRONIC KIDNEY DISEASE: <60mL/MIN/1.73 SQ METERS KIDNEY FAILURE: <15mL/MIN/1.73 SQ METERS THIS TEST SHOULD ONLY BE USED FOR PATIENTS 18 YEARS OF AGE AND OLDER. Globulin (S) [Mass/Vol] 3.0 g/dL Normal 1.5 - 3.8 [facility].; [facility]. Work Phone: Comment on above: Performed By: #### 2 18890 #### [facility],[address] [place] [address] Glucose [Mass/Vol] 86 mg/dL Normal 74 - 106 [facility].; [facility] [employer], [employer] Work Phone: Comment on above: Performed By: #### 2 19665 #### [facility],[address] [place] [address] Potassium [Moles/Vol] 3.9 mmol/L Normal 3.5 - 5.1 [facility] [facility].; [facility]. Work Phone: Comment on above: Performed By: #### 2 16414 #### [facility],[address] [place] [address] Protein [Mass/Vol] 7.4 g/dL Normal 6.4 - 8.2 [facility], [facility].; [facility], [facility] Work Phone: Comment on above: Performed By: #### 2 50483 #### [facility],[address] [place] [address] Sodium [Moles/Vol] 138 mmol/L Normal 136 - 145 [facility], [facility].; [facility], [facility] Work Phone: Comment on above: Performed By: #### 2 06201 #### [address] [address] Urea nitrogen [Mass/Vol] 13 mg/dL Normal 7 - 18 [facility], [facility].; [place] [facility] [employer] Work Phone: Comment on above: Performed By: #### 2 82318 #### [facility],[address] [place] [address] LIPID PROFILEon 11-06-2024 Cholesterol [Mass/Vol] 247 mg/dL High 0 - 240 [facility], [facility].; [place] [facility], [facility] Work Phone: Comment on above: Performed By: #### 2 85720 #### [facility],[address] [place] [address] Cholesterol in HDL [Mass/Vol] 46 mg/dL Normal 40 - 60 [facility] Comment on above: Performed By: #### 2 60606 #### [facility],[address] [place] [address] Cholesterol in LDL [Mass/Vol] 172 mg/dL High 0 - 129 [facility], [facility].; [facility], [facility] Work Phone: Comment on above: Performed By: #### 2 35736 #### [facility],[address] [place] [address] Cholesterol.total/Ch olesterol in HDL [Mass ratio] 5.4 {ratio} High 0.0 - 5.0 [facility], [facility].; [facility], [employer] Work Phone: Comment on above: Performed By: #### 2 68075 #### [facility],[address] [place] [address] Lipid 1996 panel Normal [facility] Comment on above: Result Comment: LIPI D PROFILE Performed By: #### 2 35164 #### [facility],[address] [place] [address] Triglyceride [Mass/Vol] 147 mg/dL Normal 0 - 150 [facility] [facility].; [facility], [facility] Work Phone: Comment on above: Performed By: #### 2 49571 #### [facility],[address] [place], [place] [address] Laboratory - Chemistry and C hemistry - challengeon 11-06-2024 Albumin [Mass/Vol] 1.5 g/dL Normal 0.9 - 1.6 [facility] [facility].; [facility], [facility]. Work Phone: Cholesterol in HDL [Mass or moles/Vol] 46 mg/dL Normal 40 - 60 mg/dL [facility] [facility].; [facility], [facility] Work Phone: GFR/1.73 sq M.predicted among blacks MDRD (S/P/Bld) [Vol rate/Area] mL/min/{1.73_m2} Normal 60 - 999 {ML/MINUTE} [facility], [facility].; [facility], [facility] Work Phone: GFR/1.73 sq M.predicted MDRD (S/P/Bld) [Vol rate/Area] mL/min/{1.73_m2} Normal 60 - 999 {ML/MINUTE} [facility] [employer].; [employer] [facility] [employer]. Work Phone: Lipid 1996 panel Normal [facility].; [employer] [facility] [employer]. Work Phone: Urea nitrogen/Creatinine [Mass ratio] 12 {ratio} Normal 0 - 30 {ratio} [facility] [employer].; [employer] [facility] [employer]. Work Phone: No Panel Informationon 11-06 AGE 39 {years} Normal [facility] [employer].; [employer] [facility] [employer]. Work Phone: CMP with eGFR Normal [facility] [employer]; [employer] [facility] [employer]. Work Phone: .GFRon 11-24-2022 GFR >60 Normal [facility] ([place]) Comment on above: Result Comment: GFR Population [...] By: #### G FR, LIPID, CMP #### [place] [address] GFR Non- >60 Normal [facility] ([place]) Comment on above: Result Comment: GFR Population [...] By: #### G FR, LIPID, CMP #### [address] [address] CMPon 11-24-2022 Albumin Level 4.4 G/dL Normal 3.2-4.8 [facility] ([place]) Comment on above: Performed By: #### G FR, LIPID, CMP #### [address] [address] Albumin/Globulin [Mass ratio] 1.8 {ratio} High 0.9-1.6 [facility] ([place]) Comment on above: Performed By: #### G FR, LIPID, CMP #### [address] [address] ALP [Catalytic activity/Vol] 79 U/L Normal 38-126 [facility] ([place]) Comment on above: Performed By: #### G FR, LIPID, CMP #### [address] [address] ALT [Catalytic activity/Vol] 22 U/L Normal 12-55 [facility] ([place]) Comment on above: Performed By: #### G FR, LIPID, CMP #### [address] [address] AST [Catalytic activity/Vol] 19 U/L Normal 8-34 [facility] ([place]) Comment on above: Performed By: #### G FR, LIPID, CMP #### [address] [address] Bili Total 0.40 mg/dL Normal 0.20-1.20 [facility] ([place]) Comment on above: Result Comment: Use of this assay is not recommended for patients undergoing treatment with eltrombopag due to the potential for falsely elevated results. Performed By: #### G FR, LIPID, CMP #### [address] [address] BUN/Creatinine Ratio 13.9 ratio Normal 10.0-22.0 [facility] ([place]) Comment on above: Performed By: #### G FR, LIPID, CMP #### [address] [address] Calcium [Mass/Vol] 9.1 mg/dL Normal 8.7-10.4 [facility] ([place]) Comment on above: Performed By: #### G FR, LIPID, CMP #### [address] [address] Chloride [Moles/Vol] 104 mmol/L Normal 98-110 [facility] ([place]) Comment on above: Performed By: #### G FR, LIPID, CMP #### [address] [address] CO2 [Moles/Vol] 28 mmol/L Normal 22-32 [facility] ([place]) Comment on above: Performed By: #### G FR, LIPID, CMP #### [address] [address] Creatinine [Mass/Vol] 1.01 mg/dL Normal 0.60-1.40 [facility] ([place]) Comment on above: Performed By: #### G FR, LIPID, CMP #### [address] [address] Electrolyte Balance 7.0 mEq/L Normal 4.0-15.0 [facility] ([place]) Comment on above: Performed By: #### G FR, LIPID, CMP #### [address] [address] Globulin 2.4 G/dL Normal 1.5-3.8 [facility] ([place]) Comment on above: Performed By: #### G FR, LIPID, CMP #### [address] [address] Glucose [Mass/Vol] 85 mg/dL Normal 70-110 [facility] ([place]) Comment on above: Performed By: #### G FR, LIPID, CMP #### [address] [address] Potassium [Moles/Vol] 3.9 mmol/L Normal 3.5-5.0 [facility] ([place]) Comment on above: Performed By: #### G FR, LIPID, CMP #### [address] [address] Sodium [Moles/Vol] 139 mmol/L Normal 136-145 [facility] ([place]) Comment on above: Performed By: #### G FR, LIPID, CMP #### [address] [address] Total Protein 6.8 G/dL Normal 5.7-8.2 [facility] ([place]) Comment on above: Result Comment: No te - New Reference Range in effect 19 Performed By: #### G FR, LIPID, CMP #### [address] [address] Urea nitrogen [Mass/Vol] 14.0 mg/dL Normal 8.0-22.0 [facility] ([place]) Comment on above: Performed By: #### G FR, LIPID, CMP #### [address] [address] LIPIDon 11-24-2022 Cholesterol [Mass/Vol] 216 mg/dL High 50-199 [facility] ([place]) Comment on above: Result Comment: Chol esterol Reference Interval: Less than 200 Desirable 200-239 Borderline high risk 240 and above High risk Performed By: #### G FR, LIPID, CMP #### [address] [address] Cholesterol in HDL [Mass/Vol] 43 mg/dL Normal 40-59 [facility] ([place]) Comment on above: Performed By: #### G FR, LIPID, CMP #### [address] [address] Cholesterol in LDL [Mass/Vol] 118 mg/dL Normal 0-129 [facility] ([place]) Comment on above: Performed By: #### G FR, LIPID, CMP #### [place] [id number] [place] [address] Triglyceride [Mass/Vol] 276 mg/dL High 3-149 [facility] ([place]) Comment on above: Performed By: #### G FR, LIPID, CMP #### [place] [id number] [place] [address] Laboratory - Chemistry and C hemistry - challengeon 11-24-2022 GFR/1.73 sq M.predicted among blacks MDRD (S/P/Bld) [Vol rate/Area] mL/min/{1.73_m2} Normal [facility], [facility] Work Phone: GFR/1.73 sq M.predicted among non-blacks MDRD (S/P/Bld) [Vol rate/Area] mL/min/{1.73_m2} Normal [facility], [facility].; [facility], [facility] Work Phone: Laboratory - Chemistry and C hemistry - challengeon 11-23-2022 Albumin BCP dye [Mass/Vol] 4.4 g/dL Normal 3.2 - 4.8 g/dL [facility], [facility].; [facility], [facility] Albumin/Globulin [Mass ratio] 1.8 {ratio} Abnormal 0.9 - 1.6 {ratio} [facility], [facility].; [facility], [facility] ALP [Catalytic activity/Vol] 79 U/L Normal 38 - 126 U/L [facility], [facility].; [facility], [facility] ALT With P-5'-P [Catalytic activity/Vol] 22 U/L Normal 12 - 55 U/L [facility], [facility].; [facility], [facility] AST With P-5'-P [Catalytic activity/Vol] 19 U/L Normal 8 - 34 U/L [facility], [facility].; [facility], [facility] Bilirubin [Mass/Vol] 0.40 mg/dL Normal 0.20 - 1.20 mg/dL [facility], [facility]; [facility] Calcium [Mass/Vol] 9.1 mg/dL Normal 8.7 - 10. 4 mg/dL [facility]; [facility] Chloride [Moles/Vol] 104 mmol/L Normal 98 - 110 meq/L [facility]; [facility] Cholesterol [Mass/Vol] 216 mg/dL Abnormal 50 - 199 mg/dL [facility].; [facility] Cholesterol in HDL [Mass/Vol] 43 mg/dL Normal 40 - 59 mg/dL [facility]; [facility] Cholesterol in LDL [Mass/Vol] 118 mg/dL Normal 0 - 129 mg/dL [facility]; [facility], [facility] CO2 [Moles/Vol] 28 mmol/L Normal 22 - 32 meq/L [facility]; [facility], [facility] Creatinine [Mass/Vol] 1.01 mg/dL Normal 0.60 - 1.40 mg/dL [facility]; [facility], [facility] Globulin (S) [Mass/Vol] 2.4 g/dL Normal 1.5 - 3.8 g/dL [facility]; [facility], [facility] Glucose [Mass/Vol] 85 mg/dL Normal 70 - 110 mg/dL [facility]; [facility] Potassium [Moles/Vol] 3.9 mmol/L Normal 3.5 - 5.0 meq/L [facility]; [facility], [facility] Protein [Mass/Vol] 6.8 g/dL Normal 5.7 - 8.2 g/dL [facility]; [facility], [facility] Sodium [Moles/Vol] 139 mmol/L Normal 136 - 145 meq/L [facility], [facility] Triglyceride [Mass/Vol] 276 mg/dL Abnormal 3 - 149 mg/dL [facility]; [facility] Urea nitrogen [Mass/Vol] 14.0 mg/dL Normal 8.0 - 22.0 mg/dL [facility]; [facility], [facility] Urea nitrogen/Creatinine [Mass ratio] 13.9 {ratio} Normal 10.0 - 22.0 {ratio} [facility], [facility] No Panel Informationon 11-23 Electrolyte Balance 7.0 meq/L Normal 4.0 - 15 .0 meq/L [facility]; [facility], [facility] Laboratory - Chemistry and C hemistry - challengeon 10-16-2021 Albumin BCP dye [Mass/Vol] 4.2 g/dL Normal 3.2 - 4.8 g/dL [facility]; [facility], [facility] Albumin/Globulin [Mass ratio] 1.6 {ratio} Normal 0.9 - 1.6 {ratio} [facility]; [facility], [facility]. ALP [Catalytic activity/Vol] 88 U/L Normal 38 - 126 U/L [facility]; [facility], [facility]. ALT With P-5'-P [Catalytic activity/Vol] 39 U/L Normal 12 - 55 U/L [facility]; [facility], [facility]. AST With P-5'-P [Catalytic activity/Vol] 24 U/L Normal 8 - 34 U/L [facility], [facility]. Bilirubin [Mass/Vol] 0.40 mg/dL Normal 0.20 - 1.20 mg/dL [facility]; [facility], [facility] Calcium [Mass/Vol] 9.1 mg/dL Normal 8.7 - 10. 4 mg/dL [facility]; [facility], [facility] Chloride [Moles/Vol] 107 mmol/L Normal 98 - 110 meq/L [facility]; [facility] Cholesterol [Mass/Vol] 216 mg/dL Abnormal 50 - 199 mg/dL [facility].; [facility] Cholesterol in HDL [Mass/Vol] 31 mg/dL Abnormal 40 - 59 mg/dL [facility].; [facility], [facility] CO2 [Moles/Vol] 27 mmol/L Normal 22 - 32 meq/L [facility].; [facility], [facility] Creatinine [Mass/Vol] 1.15 mg/dL Normal 0.60 - 1.40 mg/dL [facility].; [facility], [facility]. GFR/1.73 sq M.predicted among blacks MDRD (S/P/Bld) [Vol rate/Area] mL/min/{1.73_m2} Normal [facility].; [facility], [facility] Work Phone: GFR/1.73 sq M.predicted among non-blacks MDRD (S/P/Bld) [Vol rate/Area] mL/min/{1.73_m2} Normal [facility].; [facility], [facility] Work Phone: Globulin (S) [Mass/Vol] 2.6 g/dL Normal 1.5 - 3.8 g/dL [facility].; [facility], [facility] Glucose [Mass/Vol] 91 mg/dL Normal 70 - 110 mg/dL [facility]; [facility], [facility] Potassium [Moles/Vol] 4.2 mmol/L Normal 3.5 - 5.0 meq/L [facility]; [facility], [facility] Protein [Mass/Vol] 6.8 g/dL Normal 5.7 - 8.2 g/dL [facility]; [facility], [facility] Sodium [Moles/Vol] 140 mmol/L Normal 136 - 145 meq/L [facility]; [facility]. Triglyceride [Mass/Vol] 414 mg/dL Abnormal 3 - 149 mg/dL [facility].; [facility], [facility]. Urea nitrogen [Mass/Vol] 17.0 mg/dL Normal 8.0 - 22.0 mg/dL [facility], [facility].; [facility], [facility] Urea nitrogen/Creatinine [Mass ratio] 14.8 {ratio} Normal 10.0 - 22.0 {ratio} [facility], [facility].; [facility], [facility]. No Panel Informationon 10-16 Electrolyte Balance 6.0 meq/L Normal 4.0 - 15 .0 meq/L [facility].; [facility], [facility] LDL Cholesterol Not Valid Normal 0 - 129 mg/dL [facility], [facility].; [facility], [facility]. 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 [facility] Comment on above: Result Comment: Nega tive for This test was developed and its performance characteristics determined by [facility]'s [facility] [place]. This test has been authorized by FDA [...] developed and its performance characteristics determined by [facility]'s [facility] [place]. This test has been authorized by FDA [...] developed and its performance characteristics determined by [facility]'s [facility] [place]. This test has been authorized by FDA [...] 2019. 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 [facility] Comment on above: Result Comment: Naso pharyngeal Corrected on 03/31 AT 0831: Previously reported as NASAL SWAB Swab Corrected on 03/31 AT 0831: Previously reported as NASAL SWAB Performed By: #### C OVID #### [facility] Reference [address] [place], [place] [address] Laboratory - Chemistry and C hemistry - challengeon 12-29-2019 Albumin BCP dye [Mass/Vol] 4.5 g/dL Normal 3.2 - 4.8 g/dL [facility].; [facility], [facility]. Albumin/Globulin [Mass ratio] 2.0 {ratio} Abnormal 0.9 - 1.6 {ratio} [facility].; [facility], [facility]. ALP [Catalytic activity/Vol] 84 U/L Normal 38 - 126 U/L [facility].; [facility], [facility]. ALT With P-5'-P [Catalytic activity/Vol] 46 U/L Normal 12 - 55 U/L [facility].; [facility], [facility]. AST With P-5'-P [Catalytic activity/Vol] 25 U/L Normal 8 - 34 U/L [facility].; [facility], [facility]. Bilirubin [Mass/Vol] 0.50 mg/dL Normal 0.20 - 1.20 mg/dL [facility], [facility].; [facility], [facility]. Calcium [Mass/Vol] 9.6 mg/dL Normal 8.7 - 10. 4 mg/dL [facility], [facility].; [facility]. Chloride [Moles/Vol] 103 mmol/L Normal 98 - 110 meq/L [facility].; [facility] Cholesterol [Mass/Vol] 231 mg/dL Abnormal 50 - 199 mg/dL [facility].; [facility], [facility] Cholesterol in HDL [Mass/Vol] 41 mg/dL Normal 40 - 59 mg/dL [facility].; [facility], [facility] Cholesterol in LDL [Mass/Vol] 115 mg/dL Normal 0 - 129 mg/dL [facility].; [facility], [facility] CO2 [Moles/Vol] 29 mmol/L Normal 22 - 32 meq/L [facility].; [facility], [facility] Creatinine [Mass/Vol] 0.82 mg/dL Normal 0.60 - 1.40 mg/dL [facility].; [facility], [facility] GFR/1.73 sq M.predicted among blacks MDRD (S/P/Bld) [Vol rate/Area] mL/min/{1.73_m2} [facility].; [facility], [facility] Work Phone: GFR/1.73 sq M.predicted among non-blacks MDRD (S/P/Bld) [Vol rate/Area] mL/min/{1.73_m2} Normal [facility].; [facility], [facility] Work Phone: Globulin (S) [Mass/Vol] 2.2 g/dL Normal 1.5 - 3.8 g/dL [facility].; [facility], [facility] Glucose [Mass/Vol] 98 mg/dL Normal 70 - 110 mg/dL [facility].; [facility], [facility] Potassium [Moles/Vol] 3.9 mmol/L Normal 3.5 - 5.0 meq/L [facility].; [facility], [facility] Protein [Mass/Vol] 6.7 g/dL Normal 5.7 - 8.2 g/dL [facility]; [facility] Sodium [Moles/Vol] 138 mmol/L Normal 136 - 145 meq/L [facility]; [facility] Triglyceride [Mass/Vol] 374 mg/dL Abnormal 3 - 149 mg/dL [facility]; [facility] Urea nitrogen [Mass/Vol] 15.0 mg/dL Normal 8.0 - 22.0 mg/dL [facility]; [facility] Urea nitrogen/Creatinine [Mass ratio] 18.3 {ratio} Normal 10.0 - 22.0 {ratio} [facility]; [facility] No Panel Informationon 12-28 Electrolyte Balance 6.0 meq/L Normal 4.0 - 15 .0 meq/L [facility]; [facility] Vital Signs Date Time Vital Sign Value Performing Clinician Facility 01-04-2025 18:56-0400 Body temperature 98 [degF] Dr. Moses Duran MD Work Phone: [facility] 01-04-2025 18:56-0400 Diastolic blood pressure 87 mm[Hg] Dr. Moess Duran MD Work Phone: [facility] 01-04-2025 18:56-0400 Heart rate 83 /min Dr. Moses Duran MD Work Phone: [facility] 01-04-2025 18:56-0400 Respiratory rate 15 /min Dr. Moses Duran MD Work Phone: [facility] 01-04-2025 18:56-0400 SaO2% (BldA) [Mass fraction] 99 % Dr. Moses Duran MD Work Phone: [facility] 01-04-2025 18:56-0400 Systolic blood pressure 127 mm[Hg] Dr. Moses Duran MD Work Phone: [facility] 01-04-2025 18:33-0400 Body height 187.[address] Moses Duran MD Work Phone: [facility] 01-04-2025 18:33-0400 Body mass index (BMI) [Ratio] 27.2 kg/m2 Dr. Moses Duran MD Work Phone: [facility] 01-04-2025 18:33-0400 Body weight 96.[address] Moses Duran MD Work Phone: 1(043)167-006180 [place] [address] 01-01-2025 22:51-0400 Body temperature 98.2 [degF] Dr. Moses Duran MD Work Phone: 6([phone])[phone] [place] [address] 01-01-2025 22:51-0400 Diastolic blood pressure 97 mm[Hg] Dr. Moses Duran MD Work Phone: 2(474)308-507980 [place] [address] 01-01-2025 22:51-0400 Heart rate 84 /min Dr. Moses Duran MD Work Phone: 2(691)[phone] [place] [address] 01-01-2025 22:51-0400 Respiratory rate 18 /min Dr. Moses Duran MD Work Phone: 3([phone])[phone] [place] [address] 01-01-2025 22:51-0400 SaO2% (BldA) [Mass fraction] 98 % Dr. Moses Duran MD Work Phone: [phone] [place] [address] 01-01-2025 22:51-0400 Systolic blood pressure 129 mm[Hg] Dr. Moses Duran MD Work Phone: 7([phone] [place] [address] 01-01-2025 21:23-0400 Body height 187.[address] Moses Duran MD Work Phone: [facility] 01-01-2025 21:23-0400 Body mass index (BMI) [Ratio] 27.6 kg/m2 Dr. Moses Duran MD Work Phone: [phone])[phone] [place] [address] 01-01-2025 21:23-0400 Body weight 97.[address] Moses Duran MD Work Phone: [facility] 11-06-2024 14:33-0400 Body height 187.96 cm JANEL STRICKLANDSweetie HighTETTER WINDOWS DEPLOYMENT TECHNICIAN-C [facility], [facility], [facility] 11-06-2024 14:33-0400 Body mass index (BMI) [Ratio] 27.48 kg/m2 JANEL Sweetie HighTETTER WINDOWS DEPLOYMENT TECHNICIAN-C [facility], [facility] 11-06-2024 14:33-0400 Body surface area Derived from formula 2.24 m2 [facility] HighTETTER WINDOWS DEPLOYMENT TECHNICIAN-C [facility], [facility] 11-06-2024 14:33-0400 Body weight 97.07 kg JANEL STRICKLANDSweetie HighTETTER WINDOWS DEPLOYMENT TECHNICIAN-C [facility].; [facility], [facility] 11-06-2024 14:33-0400 Diastolic blood pressure 86 mm[Hg] JANEL Done.TETTER WINDOWS DEPLOYMENT TECHNICIAN-C [facility] [employer] [facility] [employer] [facility] Comment on above: Patient Position: Sitting; Cuff Location : Left Arm; Cuff Size: Large 11-06-2024 14:33-0400 Heart rate 83 /min JANEL Done.TETTER WINDOWS DEPLOYMENT TECHNICIAN-C [facility] [employer] [facility] Alex and Ani [facility] [employer] [facility] Comment on above: Pattern: Regular 11-06-2024 14:33-0400 Systolic blood pressure 125 mm[Hg] JANEL Done.TETTER WINDOWS DEPLOYMENT TECHNICIAN-C [facility] Alex [facility] Ani [facility] [employer] [facility] [employer] Comment on above: Patient Position: Sitting; Cuff Location : Left Arm; Cuff Size: Large 11-23-2022 15:24-0400 Body height 187.96 cm JANEL STRICKLANDSweetie HighTETTER WINDOWS DEPLOYMENT TECHNICIAN-C [facility] [employer] [facility] [employer] [facility] 11-23-2022 15:24-0400 Body mass index (BMI) [Ratio] 28.25 kg/m2 JANEL LYONSTTER WINDOWS DEPLOYMENT TECHNICIAN-C [facility].; [facility], [facility] 11-23-2022 15:24-0400 Body surface area Derived from formula 2.26 m2 JANEL HUDSONER WINDOWS DEPLOYMENT TECHNICIAN-C [facility], [facility] 11-23-2022 15:24-0400 Body weight 99.79 kg JANEL HUDSONER WINDOWS DEPLOYMENT TECHNICIAN-C [facility], [facility] 11-23-2022 15:24-0400 Diastolic blood pressure 88 mm[Hg] JANEL LYONSTTER WINDOWS DEPLOYMENT TECHNICIAN-C [facility], [facility] Comment on above: Patient Position: Sitting; Cuff Location : Left Arm; Cuff Size: Large 11-23-2022 15:24-0400 Heart rate 77 /min JANEL LYONSTTER WINDOWS DEPLOYMENT TECHNICIAN-C [facility] [employer] [facility] Comment on above: Pattern: Regular 11-23-2022 15:24-0400 Systolic blood pressure 139 mm[Hg] JANEL LYONSTTER WINDOWS DEPLOYMENT TECHNICIAN-C [facility], [facility] Comment on above: Patient Position: Sitting; Cuff Location : Left Arm; Cuff Size: Large 10-16-2021 14:55-0400 Body height 187.96 cm JANEL HUDSONER WINDOWS DEPLOYMENT TECHNICIAN-C [facility], [facility] 10-16-2021 14:55-0400 Body mass index (BMI) [Ratio] 28.76 kg/m2 JANEL HUDSONER WINDOWS DEPLOYMENT TECHNICIAN-C [facility] [employer] [facility].; [facility], [facility] 10-16-2021 14:55-0400 Body surface area Derived from formula 2.28 m2 JANEL HUDSONER WINDOWS DEPLOYMENT TECHNICIAN-C [facility] [employer] [facility].; [facility], [facility] 10-16-2021 14:55-0400 Body weight 101.61 kg JANEL HUDSONER WINDOWS DEPLOYMENT TECHNICIAN-C [facility].; [facility], [facility] 10-16-2021 14:55-0400 Diastolic blood pressure 83 mm[Hg] JANEL HUDSONER WINDOWS DEPLOYMENT TECHNICIAN-C [facility], [facility] Comment on above: Patient Position: Sitting; Cuff Location : Left Arm; Cuff Size: Large 10-16-2021 14:55-0400 Heart rate 80 /min JANEL HUDSONER WINDOWS DEPLOYMENT TECHNICIAN-C [facility], [facility] Comment on above: Pattern: Regular 10-16-2021 14:55-0400 Systolic blood pressure 127 mm[Hg] JANEL HUDSONER WINDOWS DEPLOYMENT TECHNICIAN-C [facility], [facility] Comment on above: Patient Position: Sitting; Cuff Location : Left Arm; Cuff Size: Large 12-28-2019 15:22-0400 Body height 187.96 cm JANEL [facility], [facility] 12-28-2019 15:22-0400 Body mass index (BMI) [Ratio] 28.63 kg/m2 [facility]ST[facility]-C [facility], [facility] 12-28-2019 15:22-0400 Body surface area Derived from formula 2.28 m2 [facility]ITALFANYER [facility]-C [facility].; [facility], [facility]. 12-28-2019 15:22-0400 Body weight 101.15 kg JANEL HUDSONER WINDOWS DEPLOYMENT TECHNICIAN-C [facility].; [facility], [facility]. 12-28-2019 15:22-0400 Diastolic blood pressure 92 mm[Hg] JANEL HUDSONER WINDOWS DEPLOYMENT TECHNICIAN-C [facility], [facility] Comment on above: Patient Position: Sitting; Cuff Location : Left Arm; Cuff Size: Large 12-28-2019 15:22-0400 Heart rate 89 /min JANEL HUDSONER WINDOWS DEPLOYMENT TECHNICIAN-C [facility], [facility].; [facility] [employer] [facility] Comment on above: Pattern: Regular 12-28-2019 15:22-0400 Systolic blood pressure 134 mm[Hg] JANEL AVILEZP-C [facility], [facility].; [facility] [employer] [facility] Comment on above: Patient Position: Sitting; Cuff Location : Left Arm; Cuff Size: Large 12-29-2017 16:13-0400 Body height 187.96 cm Carmen Ta [facility] [employer]ly [facility].; [employer] [facility] [employer] [facility] 12-29-2017 16:13-0400 Body mass index (BMI) [Ratio] 28.25 kg/m2 Carmen A [facility], [facility].; [employer] [facility] [employer] [facility] 12-29-2017 16:13-0400 Body surface area Derived from formula 2.26 m2 Carmen A [facility], [facility].; [employer] [facility] [employer] [facility] 12-29-2017 16:13-0400 Body temperature 98 [degF] Carmen Ta [facility] sofía [facility] [employer] [facility] [employer] [facility] Comment on above: Method: Oral 12-29-2017 16:13-0400 Body weight 99.79 kg Carmen Ta Amezquita Eugene [facility] evly [facility] [employer] An[facility] [employer] [facility] 12-29-2017 16:13-0400 Diastolic blood pressure 90 mm[Hg] Carmen Ta [facility] [employer] [facility] [facility] [employer] [employer] [facility] Comment on above: Patient Position: Sitting; Cuff Location : Left Arm; Cuff Size: Standard 12-29-2017 16:13-0400 Heart rate 85 /min Carmen Ta Amezquita Eugene [employer] [facility].; [facility] [id number], [employer] Comment on above: Pattern: Regular 12-29-2017 16:13-0400 Systolic blood pressure 138 mm[Hg] Carmen Ta [facility] Travel [facility] Alex and Ani [facility] Comment on above: Patient Position: Sitting; Cuff Location : Left Arm; Cuff Size: Standard 10-05-2017 15:46-0400 Body height 187.96 cm Carmen Roque [employer] [facility] GUNJAN IQUGMIUT [employer] [employer] 10-05-2017 15:46-0400 Body mass index (BMI) [Ratio] 28.25 kg/m2 Carmen Roque [employer] [facility] [employer].; KudanMICHAEL IQUGMIUT [email or web address] 10-05-2017 15:46-0400 Body surface area Derived from formula 2.26 m2 Carmen Knight [employer] [facility] [employer] IQUGMIUT [email or web address] 10-05-2017 15:46-0400 Body weight 99.79 kg Carmen Roque [facility] KudanMICHAEL IQUGMIUT [email or web address] 10-05-2017 15:46-0400 Diastolic blood pressure 84 mm[Hg] Carmen Knight [employer] [email or web address] Comment on above: Patient Position: Sitting; Cuff Location : Left Arm; Cuff Size: Standard 10-05-2017 15:46-0400 Heart rate 88 /min Carmen Roque [email or web address] Comment on above: Pattern: Regular 10-05-2017 15:46-0400 Systolic blood pressure 134 mm[Hg] Carmen Knight [email or web address] Comment on above: Patient Position: Sitting; [...] 01-01-2025 Emergency department patient visit ALLAN DURAN [facility] Start: 11-07-2024 End: 11-07-2024 Nutrition therapy JANEL ROBERTS WINDOWS DEPLOYMENT TECHNICIAN-C [facility] Start: 11-06-2024 End: 11-06-2024 ambulatory SONG DURAN [facility] Start: 11-06-2024 End: 11-06-2024 Patient encounter procedure SONG DURAN MD Work Phone: [facility] [employer] [facility] [employer] Alex and Ani [facility] [employer] [facility] [employer] Start: 11-06-2024 End: 11-06-2024 Periodic preventive med est patient 40-64yrs JANEL ROBERTS WINDOWS DEPLOYMENT TECHNICIAN-C [facility] [employer] [facility] [employer] Start: 11-26-2022 End: 11-26-2022 Nutrition therapy JANEL ROBERTS WINDOWS DEPLOYMENT TECHNICIAN-C [facility] [employer] [facility] [employer] Start: 11-24-2022 End: 11-29-[address] SONG DURAN MD Facility:A Start: 11-23-2022 End: 11-23-2022 Patient encounter procedure JANEL ROBERTS WINDOWS DEPLOYMENT TECHNICIAN-C [facility].; Alex and Ani [facility] [employer] [facility] [employer] Start: 11-23-2022 End: 11-23-2022 Periodic preventive med est patient 18-39 yrs JANEL ROBERTS WINDOWS DEPLOYMENT TECHNICIAN-C [facility] [employer] [facility] [employer] Start: 10-17-2021 End: 10-17-2021 Nutrition therapy JANEL ROBERTS WINDOWS DEPLOYMENT TECHNICIAN-C [facility] [employer] [facility] [employer] Start: 10-16-2021 End: 10-16-2021 Patient encounter procedure JANEL ROBERTS WINDOWS DEPLOYMENT TECHNICIAN-C [facility].; Alex and Ani [facility] Roque [email or web address] Start: 10-16-2021 End: 10-16-2021 Periodic preventive med est patient 18-39 yrs JANEL ROBERTS WINDOWS DEPLOYMENT TECHNICIAN-C [facility] [employer] [facility] [employer] Start: 01-01-2020 End: 01-01-2020 Nutrition therapy JANEL ROBERTS WINDOWS DEPLOYMENT TECHNICIAN-C MIAMI [employer] [facility] [employer] [facility] [employer] Start: 12-28-2019 End: 12-28-2019 Patient encounter procedure JANEL ROBERTS WINDOWS DEPLOYMENT TECHNICIAN-[place]on [facility]; [employer] [facility] [employer] [facility]. Start: 12-28-2019 End: 12-28-2019 Periodic preventive med est patient 18-39 yrs JANEL LYONSMARLI KIMBROUGH-Von [facility] [employer] [facility]. Start: 12-29-2017 End: 12-29-2017 Medication Refill/Order JANEL ROBERTS WINDOWS DEPLOYMENT TECHNICIAN-Von [facility] [employer] [facility]. Start: 12-29-2017 End: 12-29-2017 Office outpatient visit 15 minutes JANEL HUDSONKAYLA KIMBROUGH-Von [employer] [facility] [employer] [facility]. Start: 10-05-2017 End: 10-05-2017 Office outpatient visit 10 minutes JANEL CORWINDMITRIYMARLI KIMBROUGH-[place] [facility]villeCogn[facility] Procedures Date Procedure Procedure Detail Performing Clinician Start: 10-16-2021 End: 10-16-2021 Adacel SONG DURAN MD Work Phone: Comment on above: Refused. Start: 12-28-2019 End: 12-28-2019 Dischrg meds reconciled w/current med list SONG DURAN MD Work Phone: Start: 12-28-2019 End: 12-28-2019 Urinary Incontinence SONG DURAN MD Work Phone: Comment on above: Negative. Plan of Treatment Date Care Activity Detail Author Start: 01-01-2025 [facility] Start: 11-06-2024 Comprehensive metabolic panel CMP - COMPREHENSIVE METABOLIC PANEL (39989) Start: 06-Nov-2024 14:44-04:00 Request [employer] Alex and Ani [facility] RxResults. Start: 11-06-2024 Lipid panel LIPID PANEL (19554) ([facility] #[id number]) Start: 06-Nov-2024 14:44-04:00 Request [employer] Alex and Ani [facility] RxResults. Start: 12-29-2017 Patient Education BRONCHITIS, ACUTE Indication: Bronchitis, Acute, Unspecified Organism (Renamed from Acute bronchitis, unspecified organism) Start: 29-Dec-2017 Instruction Type: Patient Education [facility]; [facility] [employer] [facility] Patient Education Rabies Vaccine Understanding Rabies [facility] Work Phone: Immunizations Immunization Date Immunization Notes Care Provider Rosaura aldridge 01-04-2025 rabies vaccine, for intramuscular injection Dr. Moses Duran MD Work Phone: [facility] 01-01-2025 rabies vaccine, for intramuscular injection Dr. Moses Duran MD Work Phone: [facility] Payers Date Payer Category Payer Self-pay 2022 Unknown [id number] 1985 Unknown [id number] 1985 Unknown [id number] 1985 Unknown [id number] Unknown [employer] Unknown [id number] Social History Date Type Detail Facility Alcohol Use: Alcohol Use: ; Y es for Alcohol Use. [employer] [facility] Current Work/Study Status Current Work/Study Status [facility] [facility].; [facility] Tobacco use: Tobacco use: ; N ever smoker. [facility].; [facility] [employer] [facility]. Start: 1985 [facility] Start: 01-01-2025 Never smoked tobacco [facility] Discharge summary 01-01-2025 Note Date & Type Note Facility 01-01-2025 Discharge summary [facility] Discharge summary 01-01-2025 Note Date & Type Note Facility 01-01-2025 Discharge summary Note Date/Time January 01, 2025 10:26pm [facility] Medical Records Department [address] [place] [address] Emergency Department Summary 01/01/25 MR#: [id number] Acct: [id number] Name: VON DELUNA Rep #:[id number] : [...] of the 4 injection series. Print Language: Uzbek Disposition Disposition: Home, Self Care What to do if you have Problems For any increased pain, shortness of breath, bleeding, nausea or vomiting, chestpain, or any unexpected problems, contact your Primary Care Provider. Call [facility] ([phone]) or report to the closest Emergency Room. Call 911 if necessary. 01/01/252225 <Electronically signed by Boston Cantor MD> Cosigner Signature (if applicable): CC: Dr. Moses Duran MD ~ Signed [facility] Work Phone: Evaluation note Note Date & Type Note Facility Evaluation note No assessment information availa ble [facility] Work Phone: Hospital Discharge instructions Note Date & Type Note Facility Hospital Discharge instructions Additional Instructions Return to the ER at the specified days for the rest of the 4 injection series. [facility] Work Phone: Reason for referral (narrative) Note Date & Type Note Facility Reason for referral (narrative) No reason for referral information available [facility] Work Phone: Summary Purpose Family History Children Status:Active Comments:x4 Father Status:Active Mother Status:Active Children Status:Active Comments:x4 Father Status:Active Mother Status:Active Children Status:Active Comments:x4 Father Status:Active Mother Status:Active Children Status:Active Comments:x4 Father Status:Active Mother Status:Active Children Status:Active Comments:x4 Father Status:Active Mother Status:Active Advance Directives Advance Directive Response Recorded Date/ Time Do you have a Healthcare Power of Lead Software Development Engineer? No January 01, 2025 10:48pm Chief Complaint [...] section and content) DATE CREATED AUTHOR 04/01/2020 [facility] DATE CREATED AUTHOR AUTHOR'S ORGANIZ ATION 12/15/2022 [facility] DATE CREATED AUTHOR AUTHOR'S ORGANIZ ATION 01/02/2025 [facility] DATE CREATED AUTHOR AUTHOR'S ORGANIZ ATION 01/03/2025 [facility] Care Teams (unrecognized sec tion and content) [...] BE BASED ON THE PRIMARY CLINICAL RECORDS. [facility]. provides no warranty or guarantee of the accuracy or completeness of information in this document.
== END 2025-01-04 19:17 | disposition home or self-care (01) ==
PROVIDERS: PCP Family Medicine; Visit Provider Emergency Medicine
DX: Z23 Encounter for immunization (principal)
CPT/HCPCS: 90675; 96372

== ENCOUNTER 2025-01-08 15:16 | Outpatient (CLI) | payer OTHER, SELFPAY ==
[2025-01-08 15:20] VITALS: BP 126/85; PULSE 77; RESP 18; TEMP 36.8; O2SAT 97; BMI 26.9
--- OUTSIDE RECORDS SUMMARY | 2025-01-08 15:28 | XMS RPT_ITS | CCD ---
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 14.8 {ratio} Normal 10.0 - 22.0 {ratio} [facility].; [facility] No Panel Informationon 10-16 Electrolyte Balance 6.0 meq/L Normal 4.0 - 15 .0 meq/L [facility]; [facility] LDL Cholesterol Not Valid Normal 0 - 129 mg/dL [facility].; [facility] Coronavirus 2019on 0 COVID 19 Result CORN COOKER Normal Negative for COVID19 (SARS CoV2) by PCR. [facility] Comment on above: Result Comment: Nega tive for This test was developed and its performance characteristics determined by [facility]'s [facility]. This test has been authorized by FDA [...] developed and its performance characteristics determined by [facility]. This test has been authorized by FDA [...] developed and its performance characteristics determined by [facility]. This test has been authorized by FDA [...] 2019. Performed By: #### C OVID #### [facility] [address], [place] [address] Coronavirus 2019on 0 COVID 19 Source CORN COOKER Normal [facility] Comment on above: Result Comment: Naso pharyngeal Corrected on 03/31 AT 0831: Previously reported as NASAL SWAB Swab Corrected on 03/31 AT 0831: Previously reported as NASAL SWAB Performed By: #### C OVID #### [facility] [address], [place] [address] Laboratory - Chemistry and C hemistry - challengeon 12-29-2019 Albumin BCP dye [Mass/Vol] 4.5 g/dL Normal 3.2 - 4.8 g/dL [facility], [facility].; [facility], [facility]. Albumin/Globulin [Mass ratio] 2.0 {ratio} Abnormal 0.9 - 1.6 {ratio} [facility], [facility].; [facility] ALP [Catalytic activity/Vol] 84 U/L Normal 38 - 126 U/L [facility], [facility].; [facility], [facility]. ALT With P-5'-P [Catalytic activity/Vol] 46 U/L Normal 12 - 55 U/L [facility], [facility].; [facility] AST With P-5'-P [Catalytic activity/Vol] 25 U/L Normal 8 - 34 U/L [facility], [facility].; [facility] Bilirubin [Mass/Vol] 0.50 mg/dL Normal 0.20 - 1.20 mg/dL [facility]; [facility] Calcium [Mass/Vol] 9.6 mg/dL Normal 8.7 - 10. 4 mg/dL [facility]; [facility] Chloride [Moles/Vol] 103 mmol/L Normal 98 - 110 meq/L [facility] Cholesterol [Mass/Vol] 231 mg/dL Abnormal 50 - 199 mg/dL [facility] Cholesterol in HDL [Mass/Vol] 41 mg/dL Normal 40 - 59 mg/dL [facility]; [facility]. Cholesterol in LDL [Mass/Vol] 115 mg/dL Normal 0 - 129 mg/dL [facility]; [facility] CO2 [Moles/Vol] 29 mmol/L Normal 22 - 32 meq/L [facility].; [facility] Creatinine [Mass/Vol] 0.82 mg/dL Normal 0.60 - 1.40 mg/dL [facility]; [facility], [facility]. GFR/1.73 sq M.predicted among blacks MDRD (S/P/Bld) [Vol rate/Area] mL/min/{1.73_m2} Normal [facility].; [facility], [facility]. Work Phone: GFR/1.73 sq M.predicted among non-blacks MDRD (S/P/Bld) [Vol rate/Area] mL/min/{1.73_m2} Normal [facility], [facility]. Work Phone: Globulin (S) [Mass/Vol] 2.2 g/dL Normal 1.5 - 3.8 g/dL [facility] Glucose [Mass/Vol] 98 mg/dL Normal 70 - 110 mg/dL [facility]; [facility] Potassium [Moles/Vol] 3.9 mmol/L Normal 3.5 - 5.0 meq/L [facility]; [facility] Protein [Mass/Vol] 6.7 g/dL Normal 5.7 - 8.2 g/dL [facility]; [facility] Sodium [Moles/Vol] 138 mmol/L Normal 136 - 145 meq/L [facility]; [facility] Triglyceride [Mass/Vol] 374 mg/dL Abnormal 3 - 149 mg/dL [facility]; [facility] Urea nitrogen [Mass/Vol] 15.0 mg/dL Normal 8.0 - 22.0 mg/dL [facility]; [facility] Urea nitrogen/Creatinine [Mass ratio] 18.3 {ratio} Normal 10.0 - 22.0 {ratio} [facility]; [facility] No Panel Informationon 12-28 Electrolyte Balance 6.0 meq/L Normal 4.0 - 15 .0 meq/L [facility]; [facility] Vital Signs Date Time Vital Sign Value Performing Clinician Facility 01-04-2025 18:56-0400 Body temperature 98 [degF] Dr. Moses Duran MD Work Phone: [facility] 01-04-2025 18:56-0400 Diastolic blood pressure 87 mm[Hg] Dr. Moses Duran MD Work Phone: [facility] 01-04-2025 18:56-0400 Heart rate 83 /min Dr. Moses Duran MD Work Phone: [facility] 01-04-2025 18:56-0400 Respiratory rate 15 /min Dr. Moses Duran MD Work Phone: [facility] 01-04-2025 18:56-0400 SaO2% (BldA) [Mass fraction] 99 % Dr. Moses Duran MD Work Phone: [facility] 01-04-2025 18:56-0400 Systolic blood pressure 127 mm[Hg] Dr. Moses Duran MD Work Phone: [phone] [place] [address] 01-04-2025 18:33-0400 Body height 187.[address] Moses Duran MD Work Phone: [phone] [place] [address] 01-04-2025 18:33-0400 Body mass index (BMI) [Ratio] 27.2 kg/m2 Dr. Moses Duran MD Work Phone: [phone])959-162915 [place] [address] 01-04-2025 18:33-0400 Body weight 96.[address] Moses Duran MD Work Phone: 0([phone] [place] [address] 01-01-2025 22:51-0400 Body temperature 98.2 [degF] Dr. Moses Duran MD Work Phone: [phone])[phone] [place] [address] 01-01-2025 22:51-0400 Diastolic blood pressure 97 mm[Hg] Dr. Moses Duran MD Work Phone: [phone])705-592815 [place] [address] 01-01-2025 22:51-0400 Heart rate 84 /min Dr. Moses Duran MD Work Phone: [phone] [place] [address] 01-01-2025 22:51-0400 Respiratory rate 18 /min Dr. Moses Duran MD Work Phone: [phone] [place] [address] 01-01-2025 22:51-0400 SaO2% (BldA) [Mass fraction] 98 % Dr. Moses Duran MD Work Phone: [phone] [place] [address] 01-01-2025 22:51-0400 Systolic blood pressure 129 mm[Hg] Dr. Moses Duran MD Work Phone: [phone] [place] [address] 01-01-2025 21:23-0400 Body height 187.[address] Moses Duran MD Work Phone: [facility] 01-01-2025 21:23-0400 Body mass index (BMI) [Ratio] 27.6 kg/m2 Dr. Moses Duran MD Work Phone: [facility] 01-01-2025 21:23-0400 Body weight 97.[address] Moses Duran MD Work Phone: [facility] 11-06-2024 14:33-0400 Body height 187.96 cm JANEL PokelaboTETTER CAR CONDITIONER-C [facility], [facility]. 11-06-2024 14:33-0400 Body mass index (BMI) [Ratio] 27.48 kg/m2 [facility], [facility]. 11-06-2024 14:33-0400 Body surface area Derived from formula 2.24 m2 JANEL PokelaboTETTER CAR CONDITIONER-C [facility], [facility]. 11-06-2024 14:33-0400 Body weight 97.07 kg [facility], [facility]. 11-06-2024 14:33-0400 Diastolic blood pressure 86 mm[Hg] JANEL OLIVIATETTER CAR CONDITIONER-C [facility] Comment on above: Patient Position: Sitting; Cuff Location : Left Arm; Cuff Size: Large 11-06-2024 14:33-0400 Heart rate 83 /min JANEL PokelaboTETTER CAR CONDITIONER-C [facility] [employer] [facility] Comment on above: Pattern: Regular 11-06-2024 14:33-0400 Systolic blood pressure 125 mm[Hg] JANEL PokelaboTETTER CAR CONDITIONER-C [facility] Comment on above: Patient Position: Sitting; Cuff Location : Left Arm; Cuff Size: Large 11-23-2022 15:24-0400 Body height 187.96 cm JANEL OLIVIATETTER CAR CONDITIONER-C [facility] [employer] [facility] 11-23-2022 15:24-0400 Body mass index (BMI) [Ratio] 28.25 kg/m2 J[facility]EL [facility] 11-23-2022 15:24-0400 Body surface area Derived from formula 2.26 m2 JANEL LYONSTTER CAR CONDITIONER-C [facility], [facility]. 11-23-2022 15:24-0400 Body weight 99.79 kg JANEL LYONSTTER CAR CONDITIONER-C [facility], [facility]. 11-23-2022 15:24-0400 Diastolic blood pressure 88 mm[Hg] JANEL OLIVIATETTER CAR CONDITIONER-C [facility] [employer] [facility] Comment on above: Patient Position: Sitting; Cuff Location : Left Arm; Cuff Size: Large 11-23-2022 15:24-0400 Heart rate 77 /min JANEL STRICKLANDAffresolTTER CAR CONDITIONER-C [facility] [employer] [facility] [employer] [facility] [employer] [facility] Comment on above: Pattern: Regular 11-23-2022 15:24-0400 Systolic blood pressure 139 mm[Hg] JANEL OLIVIATETTER CAR CONDITIONER-C [facility] [employer] [facility] [employer] [facility] [employer] [facility] Comment on above: Patient Position: Sitting; Cuff Location : Left Arm; Cuff Size: Large 10-16-2021 14:55-0400 Body height 187.96 cm JANEL STRICKLANDPokelaboTETTER CAR CONDITIONER-C [facility] [employer] [facility].; [employer] [facility] [employer] [facility] 10-16-2021 14:55-0400 Body mass index (BMI) [Ratio] 28.76 kg/m2 JANEL OLIVIATETTER CAR CONDITIONER-C [facility] [employer] [facility].; [facility] 10-16-2021 14:55-0400 Body surface area Derived from formula 2.28 m2 JANEL HUDSONER CAR CONDITIONER-C [facility] 10-16-2021 14:55-0400 Body weight 101.61 kg JANEL ROBERTS [employer] [facility] 10-16-2021 14:55-0400 Diastolic blood pressure 83 mm[Hg] JANEL HUDSONER CAR CONDITIONER-C [facility] Comment on above: Patient Position: Sitting; Cuff Location : Left Arm; Cuff Size: Large 10-16-2021 14:55-0400 Heart rate 80 /min JANEL ROBERTS [employer] [facility] [employer] [facility] [employer] [facility] Comment on above: Pattern: Regular 10-16-2021 14:55-0400 Systolic blood pressure 127 mm[Hg] JANEL HUDSONER CAR CONDITIONER-C [facility] Comment on above: Patient Position: Sitting; Cuff Location : Left Arm; Cuff Size: Large 12-28-2019 15:22-0400 Body height 187.96 cm JANEL ROBERTS [facility] [employer] [facility] 12-28-2019 15:22-0400 Body mass index (BMI) [Ratio] 28.63 kg/m2 JANEL HUDSONER [employer] [facility] 12-28-2019 15:22-0400 Body surface area Derived from formula 2.28 m2 JANEL ROBERTS [employer] [facility] [employer] [facility].; [facility] 12-28-2019 15:22-0400 Body weight 101.15 kg JANEL ROBERTS [employer] [facility] [employer] [facility] 12-28-2019 15:22-0400 Diastolic blood pressure 92 mm[Hg] JANEL ROBERTS [employer] [facility], [facility].; [employer], [employer] Comment on above: Patient Position: Sitting; Cuff Location : Left Arm; Cuff Size: Large 12-28-2019 15:22-0400 Heart rate 89 /min JANEL ROBERTS CAR CONDITIONER-C [facility] [employer] [facility] [employer], [employer] Comment on above: Pattern: Regular 12-28-2019 15:22-0400 Systolic blood pressure 134 mm[Hg] JANEL ROBERTS [employer] [facility] [employer] [facility] [employer], [employer] Comment on above: Patient Position: Sitting; Cuff Location : Left Arm; Cuff Size: Large 12-29-2017 16:13-0400 Body height 187.96 cm Carmen Ta Amezquita Eugene [employer] [facility] [employer], [employer] 12-29-2017 16:13-0400 Body mass index (BMI) [Ratio] 28.25 kg/m2 Carmen Ta Amezquita [facility] [employer] [facility] [employer], [employer] 12-29-2017 16:13-0400 Body surface area Derived from formula 2.26 m2 Carmen Ta Amezquita [facility] [employer] [facility] [employer], [employer] 12-29-2017 16:13-0400 Body temperature 98 [degF] Carmen Ta Amezquita Eugene [employer] [facility].; [employer], [employer] Comment on above: Method: Oral 12-29-2017 16:13-0400 Body weight 99.79 kg Carmen Ta Amezquita Eugene Roque [employer], Inc.; [employer], [employer] 12-29-2017 16:13-0400 Diastolic blood pressure 90 mm[Hg] Carmen Ta [employer], [employer], [employer] Comment on above: Patient Position: Sitting; Cuff Location : Left Arm; Cuff Size: Standard 12-29-2017 16:13-0400 Heart rate 85 /min Carmen Ta Amezquita Eugene [employer], [employer] Comment on above: Pattern: Regular 12-29-2017 16:13-0400 Systolic blood pressure 138 mm[Hg] Carmen Ta [facility] Comment on above: Patient Position: Sitting; Cuff Location : Left Arm; Cuff Size: Standard 10-05-2017 15:46-0400 Body height 187.96 cm Carmen Ta Amezquita Eugene [facility] [employer] [facility].; [facility] 10-05-2017 15:46-0400 Body mass index (BMI) [Ratio] 28.25 kg/m2 Carmen Ta [facility].; [facility] 10-05-2017 15:46-0400 Body surface area Derived from formula 2.26 m2 Carmen aT [place] [facility] [employer] [facility] 10-05-2017 15:46-0400 Body weight 99.79 kg Carmen Ta [facility] [employer] [facility] [employer] [facility] 10-05-2017 15:46-0400 Diastolic blood pressure 84 mm[Hg] Carmen Ta [facility] Comment on above: Patient Position: Sitting; Cuff Location : Left Arm; Cuff Size: Standard 10-05-2017 15:46-0400 Heart rate 88 /min Carmen Knight [facility] [employer] [facility] [employer] [facility] Comment on above: Pattern: Regular 10-05-2017 15:46-0400 Systolic blood pressure 134 mm[Hg] Carmen Ta [facility] [employer] [facility] [employer] [facility] Comment on above: Patient Position: Sitting; Cuff Location : Left Arm; Cuff Size: Standard Encounters Encounter Date Encounter Type Care Provider Facility Start: 01-04-2025 End: 01-04-2025 Emergency department patient visit Dr. Moses Duran MD Work Phone: -Emergency Department Work Phone: Start: 01-04-2025 End: 01-04-2025 ambulatory Caridad Crespo Facility:[facility] Start: 01-01-2025 End: 01-01-2025 Emergency department patient visit Dr. Moses Duran MD Work Phone: -Emergency Department Work Phone: Start: 01-01-2025 End: 01-01-2025 Emergency department patient visit ALLAN DURAN [facility] Start: 11-07-2024 End: 11-07-2024 Nutrition therapy JANEL ROBERTS [facility] [employer] [employer] [facility] Start: 11-06-2024 End: 11-06-2024 ambulatory SONG DURAN [facility] Start: 11-06-2024 End: 11-06-2024 Patient encounter procedure SONG DURAN MD Work Phone: [facility] [employer] [facility], [employer] [facility] [employer] [facility] Start: 11-06-2024 End: 11-06-2024 Periodic preventive med est patient 40-64yrs JANEL ROBERTS [facility] [employer] [facility] Start: 11-26-2022 End: 11-26-2022 Nutrition therapy JANEL ROBERTS [facility] [employer] [facility] Start: 11-24-2022 End: 11-29-[address] SONG DURAN MD Facility:A Start: 11-23-2022 End: 11-23-2022 Patient encounter procedure JANEL ROBERTS [employer] [facility] [employer] [facility] [employer] [facility] Start: 11-23-2022 End: 11-23-2022 Periodic preventive med est patient 18-39 yrs JANEL ROBERTS [employer] [facility] [employer] [facility] Start: 10-17-2021 End: 10-17-2021 Nutrition therapy JANEL ROBERTS [facility] [employer] [facility] Start: 10-16-2021 End: 06-09-2022 Patient encounter [facility] Start: 10-16-2021 End: 10-16-2021 Periodic preventive med est patient 18-39 yrs JANEL KIMBROUGH-[facility] Start: 01-01-2020 End: 01-01-2020 Nutrition therapy JANEL AVILEZP-Von [facility] Start: 12-28-2019 End: 12-28-2019 Patient encounter procedure JANEL AVILEZP-Von [facility] [employer] [facility] Start: 12-28-2019 End: 12-28-2019 Periodic preventive med est patient 18-39 yrs JANEL KIMBROUGH-V[facility] Start: 12-29-2017 End: 12-29-2017 Medication Refill/Order JANEL ROBERTS [facility] Start: 12-29-2017 End: 12-29-2017 Office outpatient visit 15 minutes JANEL ROBERTS [facility] Start: 10-05-2017 End: 10-05-2017 Office outpatient visit 10 minutes JANEL KIMBROUGH-Von [facility] [employer] [facility] Procedures Date Procedure Procedure Detail Performing Clinician Start: 10-16-2021 End: 10-16-2021 Adacel SONG DURAN MD Work Phone: Comment on above: Refused. Start: 12-28-2019 End: 12-28-2019 Dischrg meds reconciled w/current med list SONG DURAN MD Work Phone: Start: 12-28-2019 End: 12-28-2019 Urinary Incontinence SONG DURAN MD Work Phone: Comment on above: Negative. Plan of Treatment Date Care Activity Detail Author Start: 01-01-2025 [facility] Start: 11-06-2024 Comprehensive metabolic panel CMP - COMPREHENSIVE METABOLIC PANEL (09440) Start: 06-Nov-2024 14:44-04:00 Request [employer] [facility] [employer] [facility] [place] [employer] Start: 11-06-2024 Lipid panel LIPID PANEL (65656) ([facility] #[id number]) Start: 06-Nov-2024 14:44-04:00 Request [employer] [facility] [employer] Start: 12-29-2017 Patient Education BRONCHITIS, ACUTE Indication: Bronchitis, Acute, Unspecified Organism (Renamed from Acute bronchitis, unspecified organism) Start: 29-Dec-2017 Instruction Type: Patient Education [employer] [facility] [employer]. Patient Education Rabies Vaccine Understanding Rabies [facility] Work Phone: Immunizations Immunization Date Immunization Notes Care Provider Rosaura aldridge 01-04-2025 rabies vaccine, for intramuscular injection Dr. Moses Duran MD Work Phone: [facility] 01-01-2025 rabies vaccine, for intramuscular injection Dr. Moses Duran MD Work Phone: [facility] Payers Date Payer Category Payer Self-pay 2022 Unknown [id number] 1985 Unknown [id number] 1985 Unknown [id number] 1985 Unknown [id number] Unknown [employer] Unknown [id number] Unknown [id number] Social History Date Type Detail Facility Alcohol Use: Alcohol Use: ; Y es for Alcohol Use. [employer] [facility] [employer] [facility] [place] [employer] Current Work/Study Status Current Work/Study Status [employer] [facility] Tobacco use: Tobacco use: ; N [facility] Start: 1985 Male [facility] Start: 01-01-2025 Never smoked tobacco [facility] Discharge summary 01-01-2025 Note Date & Type Note Facility 01-01-2025 Discharge summary [facility] Discharge summary 01-01-2025 Note Date & Type Note Facility 01-01-2025 Discharge summary Note Date/Time January 01, 2025 10:26pm [facility] Medical Records Department [address] [place] [address] Emergency Department Summary 01/01/25 MR#: [id number] Acct: [id number] Name: VON DELUNA Rep #:[id number] : 1985 39 From: [place] Cantor MD PCP: Dr. Moess Duran MD Status:RE G ER Location: ED [...] of the 4 injection series. Print Language: Greek Disposition Disposition: Home, Self Care What to do if you have Problems For any increased pain, shortness of breath, bleeding, nausea or vomiting, chestpain, or any unexpected problems, contact your Primary Care Provider. Call [facility] ([phone]) or report to the closest Emergency Room. Call 911 if necessary. 01/01/252225 <Electronically signed by Boston Cantor MD> Cosigner Signature (if applicable): CC: Dr. Moses Duran MD ~ Signed [facility] Work Phone: Evaluation note Note Date & Type Note Facility Evaluation note No assessment information availa ble [facility] Work Phone: Hospital Discharge instructions Note Date & Type Note Facility Hospital Discharge instructions Additional Instructions Return to the ER at the specified days for the rest of the 4 injection series. [facility] Work Phone: Reason for referral (narrative) Note Date & Type Note Facility Reason for referral (narrative) No reason for referral information available [facility] Work Phone: Summary Purpose Family History No Family History Records Found Children Status:Active Comments:x4 Father Status:Active Mother Status:Active Children Status:Active Comments:x4 Father Status:Active Mother Status:Active Children Status:Active Comments:x4 Father Status:Active Mother Status:Active Children Status:Active Comments:x4 Father Status:Active Mother Status:Active Children Status:Active Comments:x4 Father Status:Active Mother Status:Active Advance Directives No Advanced Directives Records Found Advance Directive Response Recorded Date/ Time Do you have a Healthcare Power of Spectacle Truer? No January 01, 2025 10:48pm Chief Complaint [...] section and content) DATE CREATED AUTHOR 04/01/2020 [facility] DATE CREATED AUTHOR AUTHOR'S DEEPTI QUEZADA 12/15/2022 [facility] DATE CREATED AUTHOR AUTHOR'S ORGANIZ ATION 01/02/2025 [facility] DATE CREATED AUTHOR AUTHOR'S ORGANIZ ATION 01/06/2025 [facility] Care Teams (unrecognized sec tion and content) [...] BE BASED ON THE PRIMARY CLINICAL RECORDS. [employer] provides no warranty or guarantee of the accuracy or completeness of information in this document.
--- OUTSIDE RECORDS SUMMARY | 2025-01-08 16:20 | XMS RPT_ITS | CCD ---
Author Organization [facility] Care Team Providers Care Systems Accountant Name Role Phone RENEE ARANA, DR SONG Claros Attending Unavailverna DURAN MD, DR SONG Claros Primary Care Unavailverna ROBERTS [employer], JANEL Rider Unavailable Unav kiran GREENE MD, SRIDEVI Vidal Unavailable [phone] Micheal QUINTERO MD Unavailable SONG DURAN MD Unavailable Carmen Amezquita Unavailable Unavailable Unavailable Unavailable Renee ARANA, Dr. Lopes Primary Care Provider Dr. Boston Cantor MD Emergency Provider ALLAN DURAN Admitting Unavailable DURAN, ALLAN Von Primary Care Unavailable ALLAN DURAN Attending Unavailable DURAN, SONG T Consulting Unavailable DURAN, SONG T Referring Unavailable PROVIDER, UNKNOWN Consulting Unavailable PROVIDER, UNKNOWN Consulting Unavailable PROVIDER, UNKNOWN Consulting Unavailable DURAN, SONG T Admitting Unavailable DURAN, SONG T Primary Care Unavailable DURANBELKYSSONG T Attending Unavailable Dr. Caridad Crespo DO Emergency Provider [phone] Boston Cantor Attending Unavailable Moses Duran Primary Care Unavailable Caridad Crespo Attending Unavailable Moses Duran Primary Care Unavailable Dr. Boston Cantor MD Attending Provider Dr. Caridad Crespo DO Attending Provider Allergies Allergy Classification Reported Allergen(s) Allergy Type Date of Onset Reaction(s) Facility (8 sources) Amoxicillin Drug Allergy 11-06-2024 [facility], [facility]. (1 source) Amoxicillin Drug Allergy 01-04-2025 [facility] Repository Medications Completed/Discontinued Medications Medication Drug [...] Episodic Immunizations and screening for infectious disease (3 sources) Contact with and (suspected) exposure to [...] here for a other ( wellness for [employer] ) physical. 11-06-2024 Unclassified (5 sources) !Patient [...] here for a other ( wellness for [employer] ) physical. The patinet denies tobacco use. 11-23-2022 Unclassified (5 sources) Physical examination - The patient is here for a other ( wellness for [employer] ) physical. The patinet denies tobacco use. [...] examination: Pt is feeling well. Form from [employer] to fill out. 12-28-2019 Unclassified (5 sources) [...] DETAIL on 01-01-2025 ED MED ADMINISTRATION DETAIL Body Trimmer - VON DELUNA, : 1985, , Medication Administration Record [address] [place] [address] [id number] 01/01/2025 Patient: VON DELUNA Sex: Male : [...] mL given. (Lot#: [id number], expiration date: 01/06/2027, international trade compliance manager: 20:02 01/01/2025 ERT > 7yr and older [employer]). Given in the right deltoid. Allergies verified and Felisha Amezquita R.N. 0.5 mL (NOW x1) confirmed 5 rights. Information reviewed. Verbalizes understanding. Scanned Vaccine information statement (01/01/2025) provided to the patient. - 20:03 Felisha Amezquita R.N. 1 of 1 Normal [facility] ED NURSES CLINICAL NOTEon ED NURSES CLINICAL NOTE Nurse Narrative - VON DELUNA, : 1985, , Nurse Clinical Narrative [place] [id number] [place] [address] [id number] 01/01/2025 16:25:00 Patient: VON DELUNA Sex: Male : 1985 Age: 39y Disposition: Transfer to [facility] Disposition Decision Time: 19:29 01/01/2025 Departure [...] Pain level now 0/10. -- 17:12 01/01/25 TADT Jarrod Amezquita R.N. Measurements: 17:01/01/25 Wt: 95.3 kg, Ht/Wilmer: 74.0 in, BMI: 26.96 -- 17:13 01/01/25 TADT Jarrod Amezquita R.N. Medications: no known home medications -- 17:13 01/01/25 EDT Jarrod Amezquita R.N. 1 of 3 Nurse Narrative - VON DELUNA, : 1985, , 17:10 01/01/25. Preferred Pharmacy: ([facility]). -- 17:15 01/01/25 TADT Jarrod Amezquita R.N. Allergies: Amoxicillin -- 17:12 01/01/25 TADT Jarrod Amezquita R.N. Problems: no known problem -- 17:01/01/25 TADT Jarrod Amezquita R.N. Surgeries: no known surgical history -- 17:13 01/01/25 TADT Jarrod Amezquita R.N. History 17:01/01/25. SOCIAL [...] 17:15 01/01/25 TADT Jarrod Amezquita R.N. Interventions 17:01/01/25. Advanced care plan discussed with patient. Patient does not have advanced directive. (full code). -- 17:15 01/01/25 PAYTON Amezquita R.N. PHYSICAL ASSESSMENT 2 of 3 Nurse Narrative - MIKIE VON, : 1985, , 20:07 01/01/25. Ambulatory to [...] and non-tender. Normal skin turgor. -- 20:01/01/25 TADT Felisha Amezquita R.N. NURSING PROGRESS NOTES 20:02 01/01/25. Tdap IM DIPTH/TETANUS/PERT > 7yr and older 0.5 mL given. (Lot#: [id number], expiration date: 01/06/2027, international trade compliance manager: [employer]). Given in the right deltoid. Allergies verified and confirmed 5 rights. Information reviewed. Verbalizes understanding. Vaccine information statement (01/01/2025) provided to the patient. -- 20:03 01/01/25 EDT Felisha Amezquita R.N. 20:02 01/01/25. Keflex PO 500 mg given. Allergies verified and confirmed 5 rights. Information reviewed. Verbalizes understanding. -- 20:02 01/01/25 EDT Felisha Amezquita R.N. 20:05 01/01/25. ( Medicated per order, pt denies any needs at this time). -- 20:05 01/01/25 EDT Felisha Amezquita R.N. DISPOSITION / DISCHARGE 20:14 01/01/25. BP: 132/95 MAP: 107. HR: 78. RR: 15. O2 saturation: 98% Temperature: Deferred . Pain: Deferred. -- 20:24 01/01/25 EDT Felisha Amezquita R.N. Departure time: 20:23 01/01/2025. -- 20:23 01/01/25 EDT Felisha Amezquita R.N. 20:24 01/01/25. Condition at departure: stable. -- 20:24 01/01/25 EDT Felisha Amezquita R.N. 20:29 01/01/25. Report was given. ([facility]). -- 20:29 01/01/25 EDT Felisha Amezquita R.N. (Electronically signed by Felisha Amezquita R.N. 01/01/25 20:29:52 EDT) Generated by [facility] 3 of 3 Normal [facility] ED ORDER SHEET (CPOE ONLY)on 01-01-2025 ED ORDER SHEET (CPOE ONLY) Order Sheet - VON DELUNA, : 1985, , Order Sheet [address] [address] [id number] 01/01/2025 Patient: VON DELUNA Sex: Male : [...] (01/01/2025 22:14 EDT)] 2 of 2 Normal [facility] ED PHYSICIAN CLINICAL REPORT on 01-01-2025 ED PHYSICIAN CLINICAL REPORT Narrative - VON DELUNA, : 1985, , Physician Clinical Narrative [address] [address] [id number] 01/01/2025 16:25:00 Patient: VON DELUNA Sex: Male : 1985 Age: 39y Disposition: Transfer to [facility] Disposition Decision Time: 19:29 01/01/2025 Departure [...] did discuss this with Dr. Dunham at [facility]. And the [facility] vehicle. I did update his [...] days, dispense 15 tablet. Refills 0. Pharmacy: [facility] - [address] [place] [address]. [facility], Phone: [phone], [facility], [address] [facility] [address] [address]. (see the skin doctor for masses on arm and chest.. May need biopsy.). Song Duran M.D, [facility], Phone: [phone], [address] [place] [address]. Follow up in three days. (Electronically signed by Collins Cooper D.O. 01/01/25 22:14:27 EDT) Generated by [facility] 3 of 3 Normal [facility] ED SUPER BILLon 01-01-2025 ED SUPER BILL Supertarah - VON DELUNA, : 1985, , [place] [address] [id number] 01/01/2025 Patient: VON DELUNA Sex: Male : 1985 Age: 39y Item Professional Category Description Facility Code Code Quantity Fee Total Nurse/E/M EMERGENCY 143430 1 $0.00 $0.00 DEPARTMENT VISIT MODERATE SEVERITY (54022-64) Nurse/Procedures One vaccine 263437 1 $0.00 $0.00 (16321) Grand Total $0.00 Providers Collins Coopre D.O. Chief Complaint UPPER EXTREMITY ALTERED SENSATION. Principal Diagnosis 1 of 2 Superbill - VON DELUNA, : 1985, , Single superficial abrasion to the right wrist. lymph nodes on arm and chest bat exposure. ICD-10 Codes S60.811A: Abrasion of right wrist, initial encounter 2 of 2 [facility] ED VISIT SUMMARYon ED VISIT SUMMARY Visit Bradley - VON DELUNA : 1985, , Visit [address] [address] [id number] 01/01/2025 Patient: VON DELUNA Sex: Male : [...] / PROBLEMS None 1 of 3 Visit VON Serrano, : 1985, , See nurses notes PAST [...] THE RIGHT WRIST 3 of 3 Normal [facility] ED VITALS FLOW SHEETon 01-01 ED VITALS FLOW SHEET Vitals - VON DELUNA, : 1985, , Vital Sign Flow Sheet [address] [address] [id number] 01/01/2025 Patient: VON DELUNA Sex: Male : 1985 Age: 39y Measurements Wt: 95.3 kg, Ht/Wilmer: 74.0 in, BMI: 26.96 Measured Time BP MAP HR RR O2Sat ETCO2 Temp Pain GCS RTS 20:14 01/01/2025 132/95 107 78 15 98% 17:12 01/01/2025 126/87 100 76 18 97% 98.1 F 0 1 of 1 Normal [facility] Emergency Department Summary on 01-01-2025 Emergency Department Summary [facility] Medical Records Department [address] [place] [address] Emergency Department Summary 01/01/25 MR#: [id number] Acct: [id number] Name: VON DELUNA FRIONA Rep #: [id number] : 1985 39 From: Boston Cantor MD [...] of the 4 injection series. Print Language: Citizen Of [place] Disposition Disposition: Home, Self Care What to do if you have Problems For any increased pain, shortness of breath, bleeding, nausea or vomiting, chest pain, or any unexpected problems, contact your Primary Care Provider. Call [facility] ([phone]) or report to the closest Emergency Room. Call 911 if necessary. 01/01/252225 Cosigner Signature (if applicable): CC: Dr. Moses Duran MD Signed Normal [facility] CMP with eGFRon 11-06-2024 AGE 39 years Normal [facility] Comment on above: Performed By: #### 2 04735 #### [facility],[address] [place] [address] Albumin [Mass/Vol] 4.4 g/dL Normal 3.4 - 5.0 [facility].; [facility], [employer]. Work Phone: Comment on above: Performed By: #### 2 73544 #### [address] [address] Albumin/Globulin [Mass ratio] 1.5 {ratio} Normal 0.9 - 1.6 [facility] Comment on above: Performed By: #### 2 25703 #### [address] [address] ALK PHOS 74 U/L Normal 46 - 116 [facility].; [facility], [facility] Work Phone: Comment on above: Performed By: #### 2 94568 #### [facility],[address] [place] [address] ALT [Catalytic activity/Vol] 73 U/L High 16 - 63 [facility].; [facility], [facility] Work Phone: Comment on above: Performed By: #### 2 26208 #### [facility],[address] [place] [address] Anion gap [Moles/Vol] 11 mmol/L Normal 10 - 20 [facility].; [facility], [facility] Work Phone: Comment on above: Performed By: #### 2 44840 #### [facility],[address] [place] [address] AST [Catalytic activity/Vol] 26 U/L Normal 15 - 37 [facility], [facility].; [facility], [facility] Work Phone: Comment on above: Performed By: #### 2 77766 #### [facility],[address] [place] [address] B/C RATIO 12 ratio Normal 0 - 30 [facility] Comment on above: Performed By: #### 2 22294 #### [facility],[address] [place] [address] Bilirubin [Mass/Vol] 0.8 mg/dL Normal 0.2 - 1.0 [facility].; [facility], [facility]. Work Phone: Comment on above: Performed By: #### 2 99320 #### [facility],[address] [place] [address] Calcium [Mass/Vol] 8.9 mg/dL Normal 8.5 - 10.1 [facility], [facility].; [facility], [facility]. Work Phone: Comment on above: Performed By: #### 2 23191 #### [facility],[address] [place] [address] Chloride [Moles/Vol] 101 mmol/L Normal 98 - 107 [facility].; [facility], Inc[facility] Work Phone: Comment on above: Performed By: #### 2 55065 #### [facility],[address] [place] [address] CMP with eGFR Normal [facility] Comment on above: Result Comment: COMP REHENSIVE METABOLIC PANEL Performed By: #### 2 09717 #### [facility],[address] [place] [address] CO2 [Moles/Vol] 29.9 mmol/L Normal 21.0 - 32.0 [facility].; [facility] Work Phone: Comment on above: Performed By: #### 2 91984 #### [facility],[address] [place] [address] Creatinine [Mass/Vol] 1.07 mg/dL Normal 0.70 - 1.30 [facility].; [facility] Work Phone: Comment on above: Performed By: #### 2 81347 #### [facility],[address] [place] [address] GFR/1.73 sq M.predicted among non-blacks MDRD (S/P/Bld) [Vol rate/Area] mL/min/{1.73_m2} Normal 60 - 999 [facility] Comment on above: Performed By: #### 2 71948 #### [facility],[address] [place] [address] Result Comment: ACCO RDING TO THE NATIONAL KIDNEY DISEASE EDUCATION PROGRAM(NKDE), A NORMAL eGFR IS A VALUE GREATER THAN OR EQUAL TO 60 ML/MIN/1.73 SQ METERS. CHRONIC KIDNEY DISEASE: <60mL/MIN/1.73 SQ METERS KIDNEY FAILURE: <15mL/MIN/1.73 SQ METERS THIS TEST SHOULD ONLY BE USED FOR PATIENTS 18 YEARS OF AGE AND OLDER. Globulin (S) [Mass/Vol] 3.0 g/dL Normal 1.5 - 3.8 [facility].; [facility]. Work Phone: Comment on above: Performed By: #### 2 47395 #### [facility],[address] [place] [address] Glucose [Mass/Vol] 86 mg/dL Normal 74 - 106 [facility], Inc[facility] Work Phone: Comment on above: Performed By: #### 2 19151 #### [address] [address] Potassium [Moles/Vol] 3.9 mmol/L Normal 3.5 - 5.1 [facility], [facility] Work Phone: Comment on above: Performed By: #### 2 51659 #### [address] [address] Protein [Mass/Vol] 7.4 g/dL Normal 6.4 - 8.2 [facility], [facility] Work Phone: Comment on above: Performed By: #### 2 92538 #### [address] [address] Sodium [Moles/Vol] 138 mmol/L Normal 136 - 145 [facility], [facility] Work Phone: Comment on above: Performed By: #### 2 82217 #### [address] [address] Urea nitrogen [Mass/Vol] 13 mg/dL Normal 7 - 18 [facility], [facility].; [facility] Work Phone: Comment on above: Performed By: #### 2 57918 #### [address] [address] LIPID PROFILEon 11-06-2024 Cholesterol [Mass/Vol] 247 mg/dL High 0 - 240 [facility], [facility].; [facility], [facility] Work Phone: Comment on above: Performed By: #### 2 85169 #### [place] [address],[place] [address] Cholesterol in HDL [Mass/Vol] 46 mg/dL Normal 40 - 60 [facility] Comment on above: Performed By: #### 2 12749 #### [facility],[address] [place] [address] Cholesterol in LDL [Mass/Vol] 172 mg/dL High 0 - 129 [facility].; [facility], [employer]. Work Phone: Comment on above: Performed By: #### 2 95968 #### [facility],[address] [place] [address] Cholesterol.total/Ch olesterol in HDL [Mass ratio] 5.4 {ratio} High 0.0 - 5.0 [facility].; [facility], [facility]. Work Phone: Comment on above: Performed By: #### 2 42936 #### [facility],[address] [place] [address] Lipid 1996 panel Normal [facility] Comment on above: Result Comment: LIPI D PROFILE Performed By: #### 2 09536 #### [facility],[address] [place] [address] Triglyceride [Mass/Vol] 147 mg/dL Normal 0 - 150 [facility].; [facility], [facility]. Work Phone: Comment on above: Performed By: #### 2 02316 #### [facility],[address] [place] [address] Laboratory - Chemistry and C hemistry - challengeon 11-06-2024 Albumin [Mass/Vol] 1.5 g/dL Normal 0.9 - 1.6 [facility], [employer].; [facility], Inc[facility] Work Phone: Cholesterol in HDL [Mass or moles/Vol] 46 mg/dL Normal 40 - 60 mg/dL [facility].; [employer] [facility] [employer] [facility]. Work Phone: GFR/1.73 sq M.predicted among blacks MDRD (S/P/Bld) [Vol rate/Area] mL/min/{1.73_m2} Normal 60 - 999 {ML/MINUTE} [facility] [employer] [facility].; [facility], [employer]. Work Phone: GFR/1.73 sq M.predicted MDRD (S/P/Bld) [Vol rate/Area] mL/min/{1.73_m2} Normal 60 - 999 {ML/MINUTE} [facility] [employer] [facility] [employer].; [employer] [facility] [employer] [facility], [employer]. Work Phone: Lipid 1996 panel Normal [facility].; [employer] [facility] [employer] [facility]. Work Phone: Urea nitrogen/Creatinine [Mass ratio] 12 {ratio} Normal 0 - 30 {ratio} [facility] [employer] [facility] [employer].; [employer] [facility] [employer] [facility] [employer]. Work Phone: No Panel Informationon 11-06 AGE 39 {years} Normal [facility] [employer] [facility] [employer].; [employer] [facility]. Work Phone: CMP with eGFR Normal [facility] [employer] [facility]okeD[facility]; [employer] [facility] [employer] [facility] [employer]. Work Phone: .GFRon 11-24-2022 GFR >60 Normal [facility] ([place]) Comment on above: Result Comment: GFR Population [...] By: #### G FR, LIPID, CMP #### [address] [address] GFR Non- >60 Normal [facility] ([place]) Comment on above: Result Comment: GFR Population [...] By: #### G FR, LIPID, CMP #### [address] [address] [facility] Albumin Level 4.4 G/dL Normal 3.2-4.8 [facility] ([place]) Comment on above: Performed By: #### G FR, LIPID, CMP #### [address] [address] Albumin/Globulin [Mass ratio] 1.8 {ratio} High 0.9-1.6 [facility] ([place]) Comment on above: Performed By: #### G FR, LIPID, CMP #### [address] [address] ALP [Catalytic activity/Vol] 79 U/L Normal 38-126 [facility] ([place]) Comment on above: Performed By: #### G FR, LIPID, CMP #### [address] [address] ALT [Catalytic activity/Vol] 22 U/L Normal 12-55 [facility] ([place]) Comment on above: Performed By: #### G FR, LIPID, CMP #### [address] [address] AST [Catalytic activity/Vol] 19 U/L Normal 8-34 [facility] ([place]) Comment on above: Performed By: #### G FR, LIPID, CMP #### [address] [address] Bili Total 0.40 mg/dL Normal 0.20-1.20 [facility] ([place]) Comment on above: Result Comment: Use of this assay is not recommended for patients undergoing treatment with eltrombopag due to the potential for falsely elevated results. Performed By: #### G FR, LIPID, CMP #### [place] [id number] BUN/Creatinine Ratio 13.9 ratio Normal 10.0-22.0 [facility] ([place]) Comment on above: Performed By: #### G FR, LIPID, CMP #### [address] [address] Calcium [Mass/Vol] 9.1 mg/dL Normal 8.7-10.4 [facility] ([place]) Comment on above: Performed By: #### G FR, LIPID, CMP #### [address] [address] Chloride [Moles/Vol] 104 mmol/L Normal 98-110 [facility] ([place]) Comment on above: Performed By: #### G FR, LIPID, CMP #### [address] [address] CO2 [Moles/Vol] 28 mmol/L Normal 22-32 [facility] ([place]) Comment on above: Performed By: #### G FR, LIPID, CMP #### [address] [address] Creatinine [Mass/Vol] 1.01 mg/dL Normal 0.60-1.40 [facility] ([place]) Comment on above: Performed By: #### G FR, LIPID, CMP #### [address] [address] Electrolyte Balance 7.0 mEq/L Normal 4.0-15.0 [facility] ([place]) Comment on above: Performed By: #### G FR, LIPID, CMP #### [address] [address] Globulin 2.4 G/dL Normal 1.5-3.8 [facility] ([place]) Comment on above: Performed By: #### G FR, LIPID, CMP #### [address] [address] Glucose [Mass/Vol] 85 mg/dL Normal 70-110 [facility] ([place]) Comment on above: Performed By: #### G FR, LIPID, CMP #### [address] [address] Potassium [Moles/Vol] 3.9 mmol/L Normal 3.5-5.0 [facility] ([place]) Comment on above: Performed By: #### G FR, LIPID, CMP #### [address] [address] Sodium [Moles/Vol] 139 mmol/L Normal 136-145 [facility] ([place]) Comment on above: Performed By: #### G FR, LIPID, CMP #### [address] [address] Total Protein 6.8 G/dL Normal 5.7-8.2 [facility] ([place]) Comment on above: Result Comment: No te - New Reference Range in effect 19 Performed By: #### G FR, LIPID, CMP #### [address] [address] Urea nitrogen [Mass/Vol] 14.0 mg/dL Normal 8.0-22.0 [facility] ([place]) Comment on above: Performed By: #### G FR, LIPID, CMP #### [address] [address] LIPIDon 11-24-2022 Cholesterol [Mass/Vol] 216 mg/dL High 50-199 [facility] ([place]) Comment on above: Result Comment: Chol esterol Reference Interval: Less than 200 Desirable 200-239 Borderline high risk 240 and above High risk Performed By: #### G FR, LIPID, CMP #### [facility] [address] [place] [address] Cholesterol in HDL [Mass/Vol] 43 mg/dL Normal 40-59 [facility] ([place]) Comment on above: Performed By: #### G FR, LIPID, CMP #### [facility] [address] [place] [address] Cholesterol in LDL [Mass/Vol] 118 mg/dL Normal 0-129 [facility] ([place]) Comment on above: Performed By: #### G FR, LIPID, CMP #### [facility] [address] [place] [address] Triglyceride [Mass/Vol] 276 mg/dL High 3-149 [facility] ([place]) Comment on above: Performed By: #### G FR, LIPID, CMP #### [place] [address] [place] [address] Laboratory - Chemistry and C hemistry - challengeon 11-24-2022 GFR/1.73 sq M.predicted among blacks MDRD (S/P/Bld) [Vol rate/Area] mL/min/{1.73_m2} Normal [facility], [facility].; [facility], [facility]. Work Phone: GFR/1.73 sq M.predicted among non-blacks MDRD (S/P/Bld) [Vol rate/Area] mL/min/{1.73_m2} Normal [facility], [employer] [facility], [facility]. Work Phone: Laboratory - Chemistry and C hemistry - challengeon 11-23-2022 Albumin BCP dye [Mass/Vol] 4.4 g/dL Normal 3.2 - 4.8 g/dL [facility] [email or web address] [facility], [facility].; [facility], [facility]. Albumin/Globulin [Mass ratio] 1.8 {ratio} Abnormal 0.9 - 1.6 {ratio} [facility] [employer] [facility] [facility] [employer] [facility], Inc[employer] ALP [Catalytic activity/Vol] 79 U/L Normal 38 - 126 U/L [facility] [email or web address] [facility] [facility].; [facility], [facility]. ALT With P-5'-P [Catalytic activity/Vol] 22 U/L Normal 12 - 55 U/L [facility].; [facility], [facility] AST With P-5'-P [Catalytic activity/Vol] 19 U/L Normal 8 - 34 U/L [facility].; [facility], [facility] Bilirubin [Mass/Vol] 0.40 mg/dL Normal 0.20 - 1.20 mg/dL [facility].; [facility] Calcium [Mass/Vol] 9.1 mg/dL Normal 8.7 - 10. 4 mg/dL [facility]; [facility] Chloride [Moles/Vol] 104 mmol/L Normal 98 - 110 meq/L [facility]; [facility], [facility] Cholesterol [Mass/Vol] 216 mg/dL Abnormal 50 - 199 mg/dL [facility]; [facility], [facility] Cholesterol in HDL [Mass/Vol] 43 mg/dL Normal 40 - 59 mg/dL [facility]; [facility], [facility] Cholesterol in LDL [Mass/Vol] 118 mg/dL Normal 0 - 129 mg/dL [facility]; [facility], [facility] CO2 [Moles/Vol] 28 mmol/L Normal 22 - 32 meq/L [facility]; [facility], [facility] Creatinine [Mass/Vol] 1.01 mg/dL Normal 0.60 - 1.40 mg/dL [facility].; [facility], [facility] Globulin (S) [Mass/Vol] 2.4 g/dL Normal 1.5 - 3.8 g/dL [facility]; [facility], [facility] Glucose [Mass/Vol] 85 mg/dL Normal 70 - 110 mg/dL [facility]; [facility], [facility] Potassium [Moles/Vol] 3.9 mmol/L Normal 3.5 - 5.0 meq/L [facility]; [facility] Protein [Mass/Vol] 6.8 g/dL Normal 5.7 - 8.2 g/dL [facility]; [facility] Sodium [Moles/Vol] 139 mmol/L Normal 136 - 145 meq/L [facility]; [facility] Triglyceride [Mass/Vol] 276 mg/dL Abnormal 3 - 149 mg/dL [facility]; [facility] Urea nitrogen [Mass/Vol] 14.0 mg/dL Normal 8.0 - 22.0 mg/dL [facility]; [facility] Urea nitrogen/Creatinine [Mass ratio] 13.9 {ratio} Normal 10.0 - 22.0 {ratio} [facility]; [facility], [facility] No Panel Informationon 11-23 Electrolyte Balance 7.0 meq/L Normal 4.0 - 15 .0 meq/L [facility]; [facility] Laboratory - Chemistry and C hemistry - challengeon 10-16-2021 Albumin BCP dye [Mass/Vol] 4.2 g/dL Normal 3.2 - 4.8 g/dL [facility]; [facility] Albumin/Globulin [Mass ratio] 1.6 {ratio} Normal 0.9 - 1.6 {ratio} [facility]; [facility] ALP [Catalytic activity/Vol] 88 U/L Normal 38 - 126 U/L [facility]; [facility], [facility] ALT With P-5'-P [Catalytic activity/Vol] 39 U/L Normal 12 - 55 U/L [facility]; [facility], [facility] AST With P-5'-P [Catalytic activity/Vol] 24 U/L Normal 8 - 34 U/L [facility]; [facility], [facility] Bilirubin [Mass/Vol] 0.40 mg/dL Normal 0.20 - 1.20 mg/dL [facility]; [facility] Calcium [Mass/Vol] 9.1 mg/dL Normal 8.7 - 10. 4 mg/dL [facility].; [facility], [facility] Chloride [Moles/Vol] 107 mmol/L Normal 98 - 110 meq/L [facility].; [facility] Cholesterol [Mass/Vol] 216 mg/dL Abnormal 50 - 199 mg/dL [facility].; [facility], [facility]. Cholesterol in HDL [Mass/Vol] 31 mg/dL Abnormal 40 - 59 mg/dL [facility]; [facility], [facility] CO2 [Moles/Vol] 27 mmol/L Normal 22 - 32 meq/L [facility]; [facility], [facility] Creatinine [Mass/Vol] 1.15 mg/dL Normal 0.60 - 1.40 mg/dL [facility].; [facility], [facility]. GFR/1.73 sq M.predicted among blacks MDRD (S/P/Bld) [Vol rate/Area] mL/min/{1.73_m2} [facility].; [facility], [facility]. Work Phone: GFR/1.73 sq M.predicted among non-blacks MDRD (S/P/Bld) [Vol rate/Area] mL/min/{1.73_m2} [facility].; [facility], [facility]. Work Phone: Globulin (S) [Mass/Vol] 2.6 g/dL Normal 1.5 - 3.8 g/dL [facility].; [facility], [facility] Glucose [Mass/Vol] 91 mg/dL Normal 70 - 110 mg/dL [facility]; [facility], [facility] Potassium [Moles/Vol] 4.2 mmol/L Normal 3.5 - 5.0 meq/L [facility]; [facility], [facility] Protein [Mass/Vol] 6.8 g/dL Normal 5.7 - 8.2 g/dL [facility]; [facility], [facility] Sodium [Moles/Vol] 140 mmol/L Normal 136 - 145 meq/L [facility]; [facility], [facility] Triglyceride [Mass/Vol] 414 mg/dL Abnormal 3 - 149 mg/dL [facility]; [facility], [facility] Urea nitrogen [Mass/Vol] 17.0 mg/dL Normal 8.0 - 22.0 mg/dL [facility]; [facility], [facility] Urea nitrogen/Creatinine [Mass ratio] 14.8 {ratio} Normal 10.0 - 22.0 {ratio} [facility]; [facility], [facility] No Panel Informationon 10-16 Electrolyte Balance 6.0 meq/L Normal 4.0 - 15 .0 meq/L [facility]; [facility], [facility] LDL Cholesterol Not Valid Normal 0 - 129 mg/dL [facility].; [facility], [facility] Coronavirus 2019on 0 COVID 19 Result BOTTLER Normal Negative for COVID19 (SARS CoV2) by PCR. [facility] Comment on above: Result Comment: Nega tive for This test was developed and its performance characteristics determined by [facility]'s [facility] [place]. This test has been authorized by FDA [...] developed and its performance characteristics determined by [facility] [place]. This test has been authorized by FDA [...] developed and its performance characteristics determined by [facility]'s [facility] [place]. This test has been authorized by FDA [...] 2019. Performed By: #### C OVID #### [facility] Reference [address], [place] [address] Coronavirus 2019on 0 COVID 19 Source BOTTLER Normal [facility] Comment on above: Result Comment: Naso pharyngeal Corrected on 03/31 AT 0831: Previously reported as NASAL SWAB Swab Corrected on 03/31 AT 0831: Previously reported as NASAL SWAB Performed By: #### C OVID #### [facility] [address], [place] [address] Laboratory - Chemistry and C hemistry - challengeon 12-29-2019 Albumin BCP dye [Mass/Vol] 4.5 g/dL Normal 3.2 - 4.8 g/dL [facility], [facility].; [facility], [facility]. Albumin/Globulin [Mass ratio] 2.0 {ratio} Abnormal 0.9 - 1.6 {ratio} [facility], [facility].; [facility], [facility]. ALP [Catalytic activity/Vol] 84 U/L Normal 38 - 126 U/L [facility], [facility].; [facility], Inc[employer] ALT With P-5'-P [Catalytic activity/Vol] 46 U/L Normal 12 - 55 U/L [facility], [facility].; [facility], [facility]. AST With P-5'-P [Catalytic activity/Vol] 25 U/L Normal 8 - 34 U/L [facility]; [facility] Bilirubin [Mass/Vol] 0.50 mg/dL Normal 0.20 - 1.20 mg/dL [facility].; [facility] Calcium [Mass/Vol] 9.6 mg/dL Normal 8.7 - 10. 4 mg/dL [facility].; [facility] Chloride [Moles/Vol] 103 mmol/L Normal 98 - 110 meq/L [facility]; [facility] Cholesterol [Mass/Vol] 231 mg/dL Abnormal 50 - 199 mg/dL [facility]; [facility]. Cholesterol in HDL [Mass/Vol] 41 mg/dL Normal 40 - 59 mg/dL [facility]; [facility] Cholesterol in LDL [Mass/Vol] 115 mg/dL Normal 0 - 129 mg/dL [facility].; [facility] CO2 [Moles/Vol] 29 mmol/L Normal 22 - 32 meq/L [facility]; [facility] Creatinine [Mass/Vol] 0.82 mg/dL Normal 0.60 - 1.40 mg/dL [facility].; [facility], [facility]. GFR/1.73 sq M.predicted among blacks MDRD (S/P/Bld) [Vol rate/Area] mL/min/{1.73_m2} Normal [facility].; [facility], [facility]. Work Phone: GFR/1.73 sq M.predicted among non-blacks MDRD (S/P/Bld) [Vol rate/Area] mL/min/{1.73_m2} Normal [facility].; [facility], [facility] Work Phone: Globulin (S) [Mass/Vol] 2.2 g/dL Normal 1.5 - 3.8 g/dL [facility]; [facility] Glucose [Mass/Vol] 98 mg/dL Normal 70 - 110 mg/dL [facility]; [facility] Potassium [Moles/Vol] 3.9 mmol/L Normal 3.5 - 5.0 meq/L [facility]; [facility] Protein [Mass/Vol] 6.7 g/dL Normal 5.7 - 8.2 g/dL [facility]; [facility] Sodium [Moles/Vol] 138 mmol/L Normal 136 - 145 meq/L [facility]; [facility], [facility] Triglyceride [Mass/Vol] 374 mg/dL Abnormal 3 - 149 mg/dL [facility]; [facility] Urea nitrogen [Mass/Vol] 15.0 mg/dL Normal 8.0 - 22.0 mg/dL [facility]; [facility], [facility] Urea nitrogen/Creatinine [Mass ratio] 18.3 {ratio} Normal 10.0 - 22.0 {ratio} [facility]; [facility], [facility] No Panel Informationon 12-28 Electrolyte Balance 6.0 meq/L Normal 4.0 - 15 .0 meq/L [facility]; [facility], [facility] Vital Signs Date Time Vital Sign Value Performing Clinician Facility 01-08-2025 15:20-0400 Body height 187.[address] Moses Duran MD Work Phone: [facility] 01-08-2025 15:20-0400 Body mass index (BMI) [Ratio] 26.9 kg/m2 Dr. Moses Duran MD Work Phone: [facility] 01-08-2025 15:20-0400 Body temperature 98.2 [degF] Dr. Moses Duran MD Work Phone: [facility] 01-08-2025 15:20-0400 Body weight 95.[address] Moses Duran MD Work Phone: [facility] 01-08-2025 15:20-0400 Diastolic blood pressure 85 mm[Hg] Dr. Moses Duran MD Work Phone: 5([phone])109-549185 [place] [address] 01-08-2025 15:20-0400 Heart rate 77 /min Dr. Moses Duran MD Work Phone: [facility] 01-08-2025 15:20-0400 Respiratory rate 18 /min Dr. Moses Duran MD Work Phone: 2(011)068-300285 [place] [address] 01-08-2025 15:20-0400 SaO2% (BldA) [Mass fraction] 97 % Dr. Moses Duran MD Work Phone: 4(318)[phone] [place] [address] 01-08-2025 15:20-0400 Systolic blood pressure 126 mm[Hg] Dr. Moses Duran MD Work Phone: 4(473)[phone] [place] [address] 01-04-2025 18:56-0400 Body temperature 98 [degF] Dr. Moses Duran MD Work Phone: 5(081)[phone] [place] [address] 01-04-2025 18:56-0400 Diastolic blood pressure 87 mm[Hg] Dr. Moses Duran MD Work Phone: 5([phone])[phone] [place] [address] 01-04-2025 18:56-0400 Heart rate 83 /min Dr. Moses Duran MD Work Phone: [facility] 01-04-2025 18:56-0400 Respiratory rate 15 /min Dr. Moses Duran MD Work Phone: [facility] 01-04-2025 18:56-0400 SaO2% (BldA) [Mass fraction] 99 % Dr. Moses Duran MD Work Phone: [facility] 01-04-2025 18:56-0400 Systolic blood pressure 127 mm[Hg] Dr. Moses Duran MD Work Phone: [facility] 01-04-2025 18:33-0400 Body height 187.[address] Moses Duran MD Work Phone: [facility] 01-04-2025 18:33-0400 Body mass index (BMI) [Ratio] 27.2 kg/m2 Dr. Moses Duran MD Work Phone: 4(054)280-830285 [place] [address] 01-04-2025 18:33-0400 Body weight 96.[address] Moses Duran MD Work Phone: 7(358)[phone] [place] [address] 01-01-2025 22:51-0400 Body temperature 98.2 [degF] Dr. Moses Duran MD Work Phone: 4(524)[phone] [place] [address] 01-01-2025 22:51-0400 Diastolic blood pressure 97 mm[Hg] Dr. Moses Duran MD Work Phone: 1(716)[phone] [place] [address] 01-01-2025 22:51-0400 Heart rate 84 /min Dr. Moses Duran MD Work Phone: 7(552)038-831385 [place] [address] 01-01-2025 22:51-0400 Respiratory rate 18 /min Dr. Moses Duran MD Work Phone: 8(305)104-087685 [place] [address] 01-01-2025 22:51-0400 SaO2% (BldA) [Mass fraction] 98 % Dr. Moses Duran MD Work Phone: 4(538)114-290185 [place] [address] 01-01-2025 22:51-0400 Systolic blood pressure 129 mm[Hg] Dr. Moses Duran MD Work Phone: 2(409)[phone] [place] [address] 01-01-2025 21:23-0400 Body height 187.[address] Moses Duran MD Work Phone: [phone](340)[phone] [place] [address] 01-01-2025 21:23-0400 Body mass index (BMI) [Ratio] 27.6 kg/m2 Dr. Moses Duran MD Work Phone: [facility] 01-01-2025 21:23-0400 Body weight 97.[address] Moses Duran MD Work Phone: [facility] 11-06-2024 14:33-0400 Body height 187.96 cm JANEL STRICKLANDSnappy ChowTETTER MENDER [employer] [facility].; [facility] 11-06-2024 14:33-0400 Body mass index (BMI) [Ratio] 27.48 kg/m2 JANEL Snappy ChowTETTER MENDER [employer] [facility] 11-06-2024 14:33-0400 Body surface area Derived from formula 2.24 m2 JANEL STRICKLANDSnappy ChowTETTER MENDER [employer] [facility] [email or web address] [facility].; [facility] 11-06-2024 14:33-0400 Body weight 97.07 kg JANEL OLIVIATETTER MENDER [employer] [facility] [email or web address] [facility], [facility].; [employer] [facility] 11-06-2024 14:33-0400 Diastolic blood pressure 86 mm[Hg] JANEL JOSE LUISTETTER MENDER [employer] [facility] [email or web address] [facility], [facility].; [employer] [facility], Inc[facility] Comment on above: Patient Position: Sitting; Cuff Location : Left Arm; Cuff Size: Large 11-06-2024 14:33-0400 Heart rate 83 /min JANEL OLIVIATETTER MENDER [employer] [facility] ([employer], [facility].; [employer] [facility] [email or web address] [facility] Comment on above: Pattern: Regular 11-06-2024 14:33-0400 Systolic blood pressure 125 mm[Hg] JANEL PSI SystemsTETTER MENDER [employer] [facility] [email or web address] [facility], [facility].; [employer] [facility] [employer] [facility] Comment on above: Patient Position: Sitting; Cuff Location : Left Arm; Cuff Size: Large 11-23-2022 15:24-0400 Body height 187.96 cm JANEL STRICKLANDSnappy ChowTETTER MENDER [employer] [facility] [email or web address] [facility], [facility].; [employer] [facility] [email or web address] [facility] 11-23-2022 15:24-0400 Body mass index (BMI) [Ratio] 28.25 kg/m2 JANEL HUDSONER MENDER [employer] [facility] 11-23-2022 15:24-0400 Body surface area Derived from formula 2.26 m2 JANEL HUDSONER MENDER [employer] [facility].; [facility] 11-23-2022 15:24-0400 Body weight 99.79 kg JANEL HUDSONER MENDER [employer] [facility] 11-23-2022 15:24-0400 Diastolic blood pressure 88 mm[Hg] JANEL HUDSONER MENDER [employer] [facility] Comment on above: Patient Position: Sitting; Cuff Location : Left Arm; Cuff Size: Large 11-23-2022 15:24-0400 Heart rate 77 /min JANEL HUDSONER MENDER [employer] [facility].; [place] [employer] [facility] Comment on above: Pattern: Regular 11-23-2022 15:24-0400 Systolic blood pressure 139 mm[Hg] JANEL HUDSONER MENDER [employer] [facility] Comment on above: Patient Position: Sitting; Cuff Location : Left Arm; Cuff Size: Large 10-16-2021 14:55-0400 Body height 187.96 cm JANEL HUDSONER MENDER [employer] [facility] 10-16-2021 14:55-0400 Body mass index (BMI) [Ratio] 28.76 kg/m2 JANEL HUDSONER MENDER [employer] [facility] 10-16-2021 14:55-0400 Body surface area Derived from formula 2.28 m2 JANEL HUDSONER MENDER [employer] [facility] 10-16-2021 14:55-0400 Body weight 101.61 kg JANEL ROBERTS MENDER [employer] [facility] 10-16-2021 14:55-0400 Diastolic blood pressure 83 mm[Hg] JANEL STRICKLANDDMITRIYTTER [facility] Comment on above: Patient Position: Sitting; Cuff Location : Left Arm; Cuff Size: Large 10-16-2021 14:55-0400 Heart rate 80 /min JANEL [facility] CENTERDMITRIYTTER MENDER [employer] [facility] Comment on above: Pattern: Regular 10-16-2021 14:55-0400 Systolic blood pressure 127 mm[Hg] JANEL [facility] MED[facility] CENTERTETTER MENDER [employer] [facility] Comment on above: Patient Position: Sitting; Cuff Location : Left Arm; Cuff Size: Large 12-28-2019 15:22-0400 Body height 187.96 cm JANEL [facility] 12-28-2019 15:22-0400 Body mass index (BMI) [Ratio] 28.63 kg/m2 [facility]OSPITALDMITRIY[facility] 12-28-2019 15:22-0400 Body surface area Derived from formula 2.28 m2 [facility]OSPITALDMITRIYER [facility] 12-28-2019 15:22-0400 Body weight 101.15 kg JANEL [facility] CENTERCHRISTINAER MENDER [employer] [facility] 12-28-2019 15:22-0400 Diastolic blood pressure 92 mm[Hg] JANEL [facility] CENTERDMITRIYTTER [facility], [facility]. Comment on above: Patient Position: Sitting; Cuff Location : Left Arm; Cuff Size: Large 12-28-2019 15:22-0400 Heart rate 89 /min JANEL LYONSTTER [facility] [employer] [facility].; [employer] [facility] Comment on above: Pattern: Regular 12-28-2019 15:22-0400 Systolic blood pressure 134 mm[Hg] JANEL HUDSONKAYLA [facility] [employer] [facility], Inc.; [employer], [employer] Comment on above: Patient Position: Sitting; Cuff Location : Left Arm; Cuff Size: Large 12-29-2017 16:13-0400 Body height 187.96 cm Carmen Ta Amezquita Eugene [employer], [employer] 12-29-2017 16:13-0400 Body mass index (BMI) [Ratio] 28.25 kg/m2 Carmen Ta Amezquita [facility] [employer] [facility], [facility].; [employer], [employer] 12-29-2017 16:13-0400 Body surface area Derived from formula 2.26 m2 Carmen Ta Amezquita [facility] [employer] [facility], Inc.; [employer], [employer] 12-29-2017 16:13-0400 Body temperature 98 [degF] Carmen Ta Amezquita Eugene Roque [employer], [employer].; [employer], [employer] Comment on above: Method: Oral 12-29-2017 16:13-0400 Body weight 99.79 kg Carmen Knight [employer], [employer].; [employer], [employer] 12-29-2017 16:13-0400 Diastolic blood pressure 90 mm[Hg] Carmen Ta Amezquita Eugene [employer], [employer].; [employer], Inc. Comment on above: Patient Position: Sitting; Cuff Location : Left Arm; Cuff Size: Standard 12-29-2017 16:13-0400 Heart rate 85 /min Carmen Ta Amezquita Eugene [employer], [employer].; [employer], [employer] Comment on above: Pattern: Regular 12-29-2017 16:13-0400 Systolic blood pressure 138 mm[Hg] Carmen Ta [employer], [employer], [employer] Comment on above: Patient Position: Sitting; Cuff Location : Left Arm; Cuff Size: Standard 10-05-2017 15:46-0400 Body height 187.96 cm Carmen Roque ELENZA [facility], [facility].; GUNJAN [employer] [facility], [facility] 10-05-2017 15:46-0400 Body mass index (BMI) [Ratio] 28.25 kg/m2 Carmen Roque [email or web address] [facility], [facility].; GUNJAN [place] [employer] [facility] [employer] [facility] 10-05-2017 15:46-0400 Body surface area Derived from formula 2.26 m2 Carmen Knight Roque [email or web address] [facility], [facility].; [facility]ITALMICHAEL [place] [employer]flux [facility] [employer] [facility], [facility] 10-05-2017 15:46-0400 Body weight 99.79 kg Carmen Roque ELENZA [facility], Inc.; DishOpinionMICHAEL [place] [employer] 10-05-2017 15:46-0400 Diastolic blood pressure 84 mm[Hg] Carmen Knight [employer] [facility], Inc.; DishOpinionMICHAEL [place] [employer]flux [facility] [employer], Inc. Comment on above: Patient Position: Sitting; Cuff Location : Left Arm; Cuff Size: Standard 10-05-2017 15:46-0400 Heart rate 88 /min Carmen Roque ELENZA [facility], Inc.; DishOpinionMICHAEL [place] [employer]flux [facility] [employer], Inc. Comment on above: Pattern: Regular 10-05-2017 15:46-0400 Systolic blood pressure 134 mm[Hg] Carmen Knight [employer] [facility], [facility].; [employer]K [employer]flux [facility] [employer], Inc. Comment on above: Patient Position: Sitting; Cuff Location : Left Arm; Cuff Size: Standard Encounters Encounter Date Encounter Type Care Provider Facility Start: 01-08-2025 End: 01-08-2025 Emergency department patient visit Dr. Moses Duran MD Work Phone: -Emergency Department Work Phone: Start: 01-04-2025 End: 01-04-2025 Emergency department patient visit Dr. Moses Duran MD Work Phone: -Emergency Department Work Phone: Start: 01-04-2025 End: 01-04-[address] Caridad Crespo DO -Emergency Department Work Phone: Start: 01-04-2025 End: 01-04-2025 ambulatory Caridad Crespo Facility:[facility] Start: 01-01-2025 End: 01-01-2025 Emergency department patient visit Dr. Moses Duran MD Work Phone: -Emergency Department Work Phone: Start: 01-01-2025 End: 01-01-2025 Emergency department patient visit ALLAN Longoria DURAN [facility] Start: 11-07-2024 End: 11-07-2024 Nutrition therapy JANEL ROBERTS [employer] [facility] [email or web address] [facility] Start: 11-06-2024 End: 11-06-2024 ambulatory SONG DURAN [facility] Start: 11-06-2024 End: 11-06-2024 Patient encounter procedure SONG DURAN MD Work Phone: [employer] [facility] [employer] [facility] [employer] [facility] Start: 11-06-2024 End: 11-06-2024 Periodic preventive med est patient 40-64yrs JANEL KIMBROUGH-Von [facility] [email or web address] [facility] Start: 11-26-2022 End: 11-26-2022 Nutrition therapy JANEL ROBERTS [employer] [facility] [email or web address] [facility] Start: 11-24-2022 End: 11-29-[address] SONG DURAN MD Facility:A Start: 11-23-2022 End: 11-23-2022 Patient encounter procedure JANEL ROBERTS [employer]Von [employer] [facility] [employer] [facility] [employer] [facility] Start: 11-23-2022 End: 11-23-2022 Periodic preventive med est patient 18-39 yrs JANEL ALEJANDRA AVILEZP-C [employer] [facility] [employer] [facility] Start: 10-17-2021 End: 10-17-2021 Nutrition therapy JANEL ROBERTS [employer] [facility] Start: 10-16-2021 End: 10-16-2021 Patient encounter procedure [facility]. Start: 10-16-2021 End: 10-16-2021 Periodic preventive med est patient 18-39 yrs JANEL AVILEZP-Von [facility] Start: 01-01-2020 End: 01-01-2020 Nutrition therapy JANEL [facility]. Start: 12-28-2019 End: 12-28-2019 Patient encounter procedure [facility]. Start: 12-28-2019 End: 12-28-2019 Periodic preventive med est patient 18-39 yrs JANEL KIMBROUGH-Von [facility], [employer]. Start: 12-29-2017 End: 12-29-2017 Medication Refill/Order JANEL [facility]ILEZP[facility]. Start: 12-29-2017 End: 12-29-2017 Office outpatient visit 15 minutes JANEL AVILEZP-Von [facility], [employer]. Start: 10-05-2017 End: 10-05-2017 Office outpatient visit 10 minutes [facility]EL [facility] Procedures Date Procedure Procedure Detail Performing Clinician Start: 10-16-2021 End: 10-16-2021 Adacel SOGN DURAN MD Work Phone: Comment on above: Refused. Start: 12-28-2019 End: 12-28-2019 Dischrg meds reconciled w/current med list SONG DURAN MD Work Phone: Start: 12-28-2019 End: 12-28-2019 Urinary Incontinence SONG DURAN MD Work Phone: Comment on above: Negative. Plan of Treatment Date Care Activity Detail Author Start: 01-01-2025 [facility] Start: 11-06-2024 Comprehensive metabolic panel CMP - COMPREHENSIVE METABOLIC PANEL (23343) Start: 06-Nov-2024 14:44-04:00 [facility]. Start: 11-06-2024 Lipid panel LIPID PANEL (25067) ([facility] #[id number]) Start: 06-Nov-2024 14:44-04:00 [facility]. Start: 12-29-2017 Patient Education BRONCHITIS, ACUTE Indication: Bronchitis, Acute, Unspecified Organism (Renamed from Acute bronchitis, unspecified organism) Start: 29-Dec-2017 Instruction Type: Patient Education [facility]. Patient Education Rabies Vaccine Understanding Rabies [facility] Work Phone: Immunizations Immunization Date Immunization Notes Care Provider [facility] 01-08-2025 rabies vaccine, for intramuscular injection Dr. Moses Duran MD Work Phone: [facility] 01-04-2025 rabies vaccine, for intramuscular injection Dr. Moses Duran MD Work Phone: [facility] 01-01-2025 rabies vaccine, for intramuscular injection Dr. Moses Duran MD Work Phone: [facility] Payers Date Payer Category Payer Self-pay 2022 Unknown [id number] 1985 Unknown [id number] .. [id number] 1985 Unknown [id number] .. [id number] 1985 Unknown [id number] .. [id number] Unknown [employer] Unknown [id number] Unknown [id number] Social History Date Type Detail Facility Alcohol Use: Alcohol Use: ; Y es for Alcohol Use. [employer]; [facility] [email or web address] [facility] Current Work/Study Status Current Work/Study Status [employer]; [facility] [email or web address] [facility] [employer] Tobacco use: Tobacco use: ; N ever smoker. [employer]; [employer] [facility] [employer] [facility] [employer]. Start: 1985 Male [facility] Start: 01-01-2025 Never smoked tobacco [facility] Discharge summary 01-01-2025 Note Date & Type Note Facility 01-01-2025 Discharge summary [facility] Discharge summary 01-01-2025 Note Date & Type Note Facility 01-01-2025 Discharge summary Note Date/Time January 01, 2025 10:26pm [facility] Medical Records Department [address] [place] [address] Emergency Department Summary 01/01/25 MR#: [id number] Acct: [id number] Name: VON DELUNA Rep #:[id number] : [...] of the 4 injection series. Print Language: Citizen Of [place] Disposition Disposition: Home, Self Care What to do if you have Problems For any increased pain, shortness of breath, bleeding, nausea or vomiting, chestpain, or any unexpected problems, contact your Primary Care Provider. Call [facility] ([phone]) or report to the closest Emergency Room. Call 911 if necessary. 01/01/252225 <Electronically signed by Boston Cantor MD> Cosigner Signature (if applicable): CC: Dr. Moses Duran MD ~ Signed [facility] Work Phone: Evaluation note Note Date & Type Note Facility Evaluation note No assessment information availa ble [facility] Work Phone: Hospital Discharge instructions Note Date & Type Note Facility Hospital Discharge instructions Additional Instructions Return to the ER at the specified days for the rest of the 4 injection series. [facility] Work Phone: Reason for referral (narrative) Note Date & Type Note Facility Reason for referral (narrative) No reason for referral information available [facility] Work Phone: Summary Purpose Family History Children Status:Active Comments:x4 Father Status:Active Mother Status:Active Children Status:Active Comments:x4 Father Status:Active Mother Status:Active Children Status:Active Comments:x4 Father Status:Active Mother Status:Active Children Status:Active Comments:x4 Father Status:Active Mother Status:Active Children Status:Active Comments:x4 Father Status:Active Mother Status:Active Advance Directives Advance Directive Response Recorded Date/ Time Do you have a Healthcare Power of Surgical Coordinator? No January 01, 2025 10:48pm Chief Complaint and Reason for Visit Chief Complaint Admit Date RABIES VACCINE January 01, 2025 9: 22pm Chief Complaint Admit Date RABIES VACCINE January 01, 2025 9: 22pm MEDS ONLY January 04, 2025 6: 28pm Chief Complaint Admit Date RABIES VACCINE January 01, 2025 9: 22pm MEDS ONLY January 04, 2025 6: 28pm meds only January 08, 2025 3:16pm Additional Source Comments (unrecognized sect ion and content) No Status Records FoundNo Status Records FoundNo Status Records FoundNo Status Records Found INFORMATION SOURCE (unrecogn ized section and content) DATE CREATED AUTHOR 04/01/2020 [facility] DATE CREATED AUTHOR AUTHOR'S ORGANIZ ATION 12/15/2022 [facility] DATE CREATED AUTHOR AUTHOR'S ORGANIZ ATION 01/02/2025 [facility] DATE CREATED AUTHOR AUTHOR'S ORGANIZ ATION 01/06/[address] [facility] Care Teams (unrecognized sec tion [...] January 04, 2025 End: January 04, 2025 Team Status: Inactive Member Role/Relationship Status Dates Dr. Moses Duran MD Primary Care Provider Active Start: January 01, 2025 End: January 01, 2025 Dr. Boston Cantor MD Attending Provider Active Start: January 01, 2025 End: January 01, 2025 Dr. Boston Cantor MD Emergency Provider Active Start: January 01, 2025 End: January 01, 2025 Team Status: Inactive Member Role/Relationship Status Dates Dr. Moses Duran MD Primary Care Provider Active Start: January 04, 2025 End: January 04, 2025 Dr. Caridad Crespo DO Attending Provider Active Start: January 04, 2025 End: January 04, 2025 Team Status: Inactive Member Role/Relationship Status Dates Dr. Moses Duran MD Primary Care Provider Active Start: January 08, 2025 End: January 08, 2025 Dr. Boston Cantor MD Emergency Provider Active Start: January 08, 2025 End: January 08, 2025 Goals (unrecognized section and content) Goals may be documented in a n alternate sectionGoals may be documented in an alternate sectionGoals may be documented in an [...] BE BASED ON THE PRIMARY CLINICAL RECORDS. [employer] provides no warranty or guarantee of the accuracy or completeness of information in this document.
== END 2025-01-08 15:42 | disposition home or self-care (01) ==
LOC: ED 16:18
PROVIDERS: PCP Family Medicine; Visit Provider Emergency Medicine
DX: Z23 Encounter for immunization (principal)
CPT/HCPCS: 90675; 96372

== ENCOUNTER 2025-01-15 19:54 | Outpatient (CLI) | payer OTHER, SELFPAY ==
[2025-01-15 19:55] VITALS: BP 115/80; PULSE 80; RESP 16; TEMP 37; O2SAT 98; BMI 24.2
[2025-01-15 20:17] VITALS: BP 115/80; BP 120/80; PULSE 80; PULSE 90; RESP 16; RESP 18; TEMP 37; O2SAT 98; BMI 24.2
== END 2025-01-15 20:30 | disposition home or self-care (01) ==
LOC: ED 20:37
PROVIDERS: PCP Family Medicine
DX: Z23 Encounter for immunization (principal); Z20.3 Contact with and (suspected) exposure to rabies
CPT/HCPCS: 90675; 96372